=== PATIENT | male | born 1970 | race Caucasian/White ===

== ENCOUNTER 2023-02-28 12:47 | Inpatient (IN) | payer BC, SELFPAY ==
[2023-02-28] VITALS (23 sets, daily range): BP systolic 119–166; BP diastolic 52–86; PULSE 40–60; RESP 16–26; TEMP 36.4–36.6; O2SAT 90–100; BMI 23.5; BMI 33.9; BMI 27.2; BMI 26.6
--- NOTE | 2023-02-28 | IR_ITS ---
APPROVED REPORT Patient Location: Emergent Dog Control Officer: GABRIELLE Lopez RT (R) PROCEDURES Selective coronary angiogram Mechanical thrombectomy to the dominant circumflex artery Drug-eluting stent deployment to the dominant circumflex artery INDICATION Acute inferior lateral ST elevation myocardial infarction, Coronary artery disease Informed consent was obtained prior to the procedure. COMPLICATIONS None Estimated Blood Loss: Less than 10 ML TECHNIQUE One percent lidocaine used to anesthetize the right anterior aspect of the wrist. The right radial artery was accessed via the Seldinger technique. A 6 Maori sheath was placed in the right radial artery. The papa catheter was also used to perform selective coronary angiography. Therapeutic heparin was administered giving a therapeutic ACT and the Poppa guide catheter was used to perform right coronary artery which demonstrated a chronic occlusion. The guide catheter was then placed in the left main artery where an acute thrombosis was identified in the proximal dominant circumflex artery. A Choice PT extra-support wire was used to traverse the occlusion and a penumbra mechanical aspiration catheter was used to restore ALEXX-3 flow. Immediately after the thrombus removal and jew of ALEXX-3 flow patient experienced polymorphic VT which was corrected to sinus rhythm with 1 shock of 120 J. Following this a 3.5 x 26 mm [place] frontier stent was deployed at 18 arnie reducing the stenosis to 0%. ALEXX 0 flow was present at the beginning of the procedure with ALEXX-3 flow at the end of the procedure. Following this the apparatus was removed the sheath was removed and hemostasis was achieved using TR banding patient was transferred to the postop holding in stable condition ANGIOGRAPHIC RESULTS The left main artery Normal The left anterior descending artery Has proximal and mid vessel 30% stenoses The circumflex artery Is a massively large dominant vessel and initially occluded after a large ramus intermedius. Following stenting the ramus intermedius had diffuse 30% stenoses the first obtuse marginal artery had a proximal 50 to 60% stenosis with a widely patent stent. 3 additional obtuse marginal arteries were present distally all being large vessels. The terminal obtuse marginal artery had a long tubular 60% stenosis The right coronary artery Nondominant proximally occluded The DEMARCO ventriculogram reveals Not performed The left ventricular end-diastolic pressure Not measured IMPRESSION Acute proximal dominant inferior lateral RV ST elevation myocardial infarction Successful mechanical thrombectomy followed by drug-eluting stent deployment to the proximal circumflex artery 100% occlusion reduced to 0% with 1 drug-eluting stent PLAN 1. Brilinta 90 twice daily plus aspirin 81 mg daily 2. LDL less than 55 to be achieved with high intensity statin 3. Supportive care for the next 48 hours while maintaining telemetry. 4. Echocardiogram to evaluate ejection fraction and use LifeVest if indicated 5. Beta-blockers and EDWIN inhibitors prior to being discharged home if hemodynamically tolerates 6. Avoidance of tobacco products 7. Cardiac rehabilitation Electronically signed by : Moe Kimble MD 02/28/2023 13:37:24
--- NOTE | 2023-02-28 12:47 | ECG_ITS ---
APPROVED REPORT Exam: Resting ECG HR:56 bpm ECG Measurements Heart Rate 56 AXES QRSd 90 QRS 72 QT 415 T 88 QTc 406 Conclusion SUPRAVENTRICULAR BRADYCARDIA ST ELEVATION, CONSIDER INFERIOR INJURY [MARKED ST ELEVATION W/O NORMALLY INFLECTED T-WAVE IN II/aVF] ACUTE OH UNCONFIRMED REPORT Electronically signed by : rTavis Forrest MD 03/01/2023 07:13:57
--- NOTE | 2023-02-28 12:51 | ED_ITS ---
Discharge Plan Disposition Chief Complaint: Chest Pain Clinical Impressions Clinical Impression: ST elevation (STEMI) myocardial infarction Discharge ED Provider: Tess Burns General Adult HPI General Stated complaint: chest pain Time Seen by Provider: 02/28/23 12:52 History of Present Illness HPI narrative: Patient is a 52-year-old male no known past medical history who presents today with substernal chest discomfort radiating into his left arm with some arm numbness and dizziness that began 10 minutes prior to arrival pain is currently severe. Related Data Home Medications Medication Instructions Recorded Confirmed Unobtainable 02/28/23 02/28/23 Allergies Allergy/AdvReac Type Severity Reaction Status Date / Time Penicillins Allergy Intermediate Verified 02/28/23 12:52 [facility] Disclaimer: The information contained in this section may have been updated after the patient was seen, as this information can be updated by other users. Social History Smoking Status: Unknown if ever smoked alcohol intake: never current occupational status: other Travel in the last 8 weeks: None ROS Obtained: Yes All systems reviewed & no additional complaints except as documented Physical Exam General General appearance: other (In extreme discomfort and distress clutching his chest) Respiratory Respiratory exam: Present normal lung sounds bilaterally and respiratory distress Cardiovascular Cardiovascular exam: Present regular rate and tachycardia Neurological Exam Neurological exam: Present alert and oriented X3 Medical Decision Making Conor Inquiry Pt receiving controlled substance: No Medical Decision Narrative: EKG performed within minutes of arrival and demonstrated acute ST elevations in the inferior leads with lateral reciprocal changes. Patient was mildly bradycardic Dr. Kimble was on the phone within minutes and was ready and in the [facility] and advised that we take the patient directly to the [facility] Manager. Pads were placed in the patient's chest Dr. Kimble wanted medications administered in the [facility] Manager including aspirin Brilinta and heparin. We did not administer any other medications in the ED Al Kimble with [facility] medicine was also at the bedside and the [facility] Manager team took him to the [facility] Manager within minutes. Patient remained awake interactive and hemodynamically stable upon being transferred Critical Care Time Critical Care Time Critical Care Time: No Attestation: On , the high probability of a clinically significant, sudden or life threatenin g deterioration of the following system(s) required my full and direct attention, intervention and personal management. The time I documented below is in addition to time spent performing reported procedures but includes the following listed in this critical care notation.
[2023-02-28 13:05] LABS: Basophils # 0.1 K/mm3 (0-0.2); Basophils % 0.7 % (0.1-2.0); Eosinophils # 0.2 K/mm3 (0.0-0.4); Eosinophils % 1.8 % (0.1-12.0); Hematocrit 42.3 % (42.0-52.0); Hemoglobin 13.9 g/dL (14.1-18.0); Lymphocytes # 4.6 K/mm3 (0.7-4.5); Lymphocytes % 35.5 % (10-50); Mean Corpuscular HGB Conc 32.7 g/dL (31.8-35.4); Mean Corpuscular Hemoglobin 32.4 pg (27.0-31.2); Mean Corpuscular Volume 99.1 fl (80-94); Mean Platelet Volume 8.7 fl (7.4-10.4); Monocytes # 0.6 K/mm3 (0.1-1.0); Monocytes % 4.3 % (1.7-9.3); Neutrophils # 7.5 K/mm3 (1.8-7.8); Neutrophils % 57.7 % (37.0-80.0); Platelet Count 256 K/mm3 (142-424); Red Blood Count 4.27 M/mm3 (4.60-6.20); Red Cell Distribution Width 13.5 % (11.5-17.5)
[2023-02-28 13:18] LABS: Alanine Aminotransferase 29 U/L (12-78); Albumin Level 4.4 g/dl (3.5-5.0); Albumin/Globulin Ratio 1.3 (1.1-1.8); Alkaline Phosphatase 89 U/L (38-126); Aspartate Amino Transferase 34 U/L (17-59); Bilirubin,Total 0.7 mg/dl (0.2-1.3); Blood Urea Nitrogen 14 mg/dl (9-20); Calcium 9.1 mg/dl (8.4-10.2); Carbon Dioxide 26 mmol/L (22.0-30.0); Creatinine Clearance Estimated 105 mL/min (50-200); Estimated Glomerular Filt Rate 78 ml/min (>60); GFR (African American) 95 ML/MIN (>60); Globulin 3.4 g/dL (1.3-3.2); Glucose 87 mg/dl (74-100); Potassium 3.3 mmoL/L (3.5-5.1); Sodium 144 mmol/L (136-145); Total Protein,Serum 7.8 g/dl (6.3-8.2)
[2023-02-28 13:33] LABS: Troponin I < 0.01 ng/ml (0.00-0.034)
[2023-02-28 13:38] LABS: Anion Gap 15.3 mEq/L (5-15); Chloride 106 mmol/L (98-107)
--- NOTE | 2023-02-28 14:01 | PC.NURSE ---
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
--- NOTE | 2023-02-28 14:18 | EXP.CARD.CON ---
History of Present Illness History of Present Illness Consult date: 02/28/23 Requesting physician: Tess Burns Consult reason: chest pain Chief complaint: chest pain History of present illness: This is a 52-year-old white gentleman who presented to the emergency department with complaints of chest pain. The patient was having substernal chest pressure that radiated to his bilateral arms. The patient states that he was out [place] his [place] that he recently bought getting ready to work when he had sudden onset of dizziness and lightheadedness. The patient states that he felt very weird and his vision got really funny. He states then he had the sudden onset of the chest pressure that he rates a 10 out of 10 in intensity. It radiated to the bilateral arms and causes numbness. He was short of breath, diaphoretic, clammy and nauseated with the chest pain. He states that this lasted about 10 minutes and then he drove himself here to [facility]. The patient was found to have an inferior STEMI and was taken directly to the cardiac catheterization laboratory. He denies any lower extremity edema. He denies any fever, chills, vomiting, diarrhea, PND or orthopnea. The patient is a 1 pack/day smoker. He denies any medical problems and does not take any home medications. [facility] Disclaimer: The information contained in this section may have been updated after the patient was seen, as this information can be updated by other users. Medical History Family history of heart disease ST elevation myocardial infarction (STEMI) of inferior wall Tobacco user Family History (Updated 02/28/23 @ 14:20 by Christianne Peng APRN) Other Coronary artery disease Heart attack Hyperlipidemia Hypertension Social History (Updated 02/28/23 @ 14:21 by Christianne Peng APRN) Smoking Status: Current every day smoker tobacco type: cigarettes packs per day: 1 alcohol intake: never substance use type: marijuana counseling provided: provider counseling current occupational status: other Travel in the last 8 weeks: None Review of Systems Review of Systems Review of systems:: pertinent systems reviewed and negative unless documented below Constitutional Constitutional: Reports system reviewed and no additional complaints, except as documented Eyes Eyes: Reports system reviewed and no additional complaints, except as documented ENT Ears, Nose, Mouth, and Throat: Reports system reviewed and no additional complaints, except as documented and Reports dizziness *Cardiovascular Cardiovascular: Reports system reviewed and no additional complaints, except as documented, Reports chest pain, Reports chest pain at rest, Reports chest pain with activity, Reports diaphoresis, Reports dyspnea, Reports dyspnea on exertion, Reports lightheadedness and Reports radiating jaw, neck or arm pain *Respiratory Respiratory: Reports system reviewed and no additional complaints, except as documented, Reports dyspnea and Reports dyspnea on exertion *Gastrointestinal Gastrointestinal: Reports system reviewed and no additional complaints, except as documented and Reports nausea *Genitourinary Genitourinary: Reports system reviewed and no additional complaints, except as documented *Musculoskeletal Musculoskeletal: Reports system reviewed and no additional complaints, except as documented Integumentary/Breasts Skin/Breast: Reports system reviewed and no additional complaints, except as documented *Neurologic Neurologic: Reports system reviewed and no additional complaints, except as documented and Reports dizziness Psychiatric Psychiatric: Reports system reviewed and no additional complaints, except as documented Endocrine Endocrine: Reports system reviewed and no additional complaints, except as documented Hematologic/Lymphatic Hematologic/Lymphatic: Reports system reviewed and no additional complaints, except as documented Allergic/Immunologic Allergic/Immunologic: Repor
--- NOTE | 2023-02-28 14:22 | EXP.HP ---
History of Present Illness *Admission Date: 02/28/23 *Reason for visit:: Stemi *History of present illness: 52 yo admitted with inferior STEMI. Patient initially presented to the emergency department with chest pain found to have inferior ST elevation [place]. Patient was taken emergently to [facility] where he received mid circumflex PCI. Admitted to stepdown following procedure. Patient is currently asymptomatic and feels much better. No chest pain. States that he has been having off-and-on palpitation and angina for the last year. Also having decreased exercise capacity and states that he said shortness of breath, chest pain, palpitations for the past year. He has sought evaluation in the past but told he had a heart burn. He smokes. Denies alcohol or drugs. No concerns or complaints at this time. [facility] Disclaimer: The information contained in this section may have been updated after the patient was seen, as this information can be updated by other users. Medical History Family history of heart disease ST elevation myocardial infarction (STEMI) of inferior wall Tobacco user Family History Other Afib Cancer Coronary artery disease Diabetes Heart attack Hyperlipidemia Hypertension Social History Smoking Status: Current every day smoker tobacco type: cigarettes packs per day: 1 Tobacco counseling given: provider counseling alcohol intake: never substance use type: marijuana counseling provided: provider counseling current occupational status: employed and other Travel in the last 8 weeks: None Review of Systems Review of Systems Review of systems:: pertinent systems reviewed and negative unless documented below *Cardiovascular Cardiovascular: Reports chest pain, Reports dyspnea and Reports irregular heart rhythm *Respiratory Respiratory: Reports dyspnea Meds Home Medications and Allergies Home Medications Medication Instructions Recorded Confirmed Type No Known Home Medications 02/28/23 02/28/23 History New Prescriptions to Start Prescriptions: Allergies Allergy/AdvReac Type Severity Reaction Status Date / Time Penicillins Allergy Intermediate Verified 02/28/23 12:52 Exam Data for Last 24 hours Vital signs and Labs for Last 24 Hours: Temp Pulse Resp BP Pulse Ox 97.7 F 45 L 18 145/71 H 95 02/28/23 12:57 02/28/23 14:10 02/28/23 14:10 02/28/23 14:10 02/28/23 14:10 Laboratory Results - last 24 hr 02/28/23 12:50: WBC 13.0 H, RBC 4.27 L, Hgb 13.9 L, Hct 42.3, MCV 99.1 H, MCH 32.4 H, MCHC 32.7, RDW 13.5, Plt Count 256, MPV 8.7, Neut % (Auto) 57.7, Lymph % (Auto) 35.5, Starke % (Auto) 4.3, Eos % (Auto) 1.8, Baso % (Auto) 0.7, Neut # (Auto) 7.5, Lymph # (Auto) 4.6 H, Starke # (Auto) 0.6, Eos # (Auto) 0.2, Baso # (Auto) 0.1 02/28/23 12:50: Sodium 144, Potassium 3.3 L, Chloride 106, Carbon Dioxide 26, Anion Gap 15.3 H, BUN 14, Creatinine 1.00, Estimated Creat Clear 105, Estimated GFR 78, Est GFR ( Amer) 95, Glucose 87, Calcium 9.1, Total Bilirubin 0.7, AST 34, ALT 29, Alkaline Phosphatase 89, Troponin I < 0.01, Total Protein 7.8, Albumin 4.4, Globulin 3.4 H, Albumin/Globulin Ratio 1.3 I & O for Last 24 hours: Intake & Output 02/25/23 02/26/23 02/27/23 02/28/23 23:59 23:59 23:59 23:59 Weight 86.183 kg Constitutional Constitutional: no acute distress *Routine HEENT Exam Head: Present normocephalic Eye: Present EOMI and PERRL ENT: Present mucous membranes moist *Routine Neck Exam Neck: Present supple; Absent lymphadenopathy *Routine Respiratory Exam Respiratory: Present CTA bilaterally *Routine Cardiovascular Exam Cardiovascular: Present RRR *Routine Abdominal Exam Abdominal: Present soft and normoactive bowel sounds; Absent tenderness *Routine Rectal Exam Rectal:: deferred *Routine Genitalia Exam Genitalia:: deferred *Routine
[2023-02-28 15:52] LABS: CATHL Activated Clotting Time 237 SEC (74-125)
[2023-02-28 17:07] LABS: Coronavirus 19, PCR Not Detected (NotDetected); Influenza A, PCR Not Detected (NotDetected); Influenza B, PCR Not Detected (NotDetected)
[2023-02-28 17:32] LABS: Troponin I 0.42 ng/ml (0.00-0.034)
--- NOTE | 2023-02-28 17:41 | PC.NURSE ---
critical lab value received at 1731. troponin 0.42. name and lab value repeated and verified back called Dr Earl at 1732 and notified of results. per dr earl ok to cancel any further troponins ordered.
--- NOTE | 2023-02-28 18:13 | PC.NURSE ---
1409 arrived on unit 20 ml of air in radial band 1535 2ml air removed 1550 2ml air removed 1605 2 ml air removed 1635 2 ml air removed 1700 2 ml air removed 1715 2 ml air removed 1730 2 ml air removed 1745 site cleaned with chlorhexidine swab and dressed with telfa and tegaderm
[2023-03-01] VITALS (11 sets, daily range): BP systolic 119–169; BP diastolic 63–107; PULSE 41–70; RESP 16–21; TEMP 36.6–36.9; O2SAT 95–100; BMI 26.6
[2023-03-01 07:28] LABS: Basophils # 0.1 K/mm3 (0-0.2); Basophils % 0.4 % (0.1-2.0); Eosinophils # 0.2 K/mm3 (0.0-0.4); Eosinophils % 1.7 % (0.1-12.0); Hematocrit 42.1 % (42.0-52.0); Hemoglobin 13.6 g/dL (14.1-18.0); Lymphocytes # 3.2 K/mm3 (0.7-4.5); Lymphocytes % 22.8 % (10-50); Mean Corpuscular HGB Conc 32.2 g/dL (31.8-35.4); Mean Corpuscular Hemoglobin 31.9 pg (27.0-31.2); Mean Corpuscular Volume 98.9 fl (80-94); Mean Platelet Volume 8.8 fl (7.4-10.4); Monocytes # 0.6 K/mm3 (0.1-1.0); Monocytes % 4.2 % (1.7-9.3); Neutrophils # 9.9 K/mm3 (1.8-7.8); Neutrophils % 70.9 % (37.0-80.0); Platelet Count 199 K/mm3 (142-424); Red Blood Count 4.26 M/mm3 (4.60-6.20); Red Cell Distribution Width 13.5 % (11.5-17.5)
[2023-03-01 07:36] LABS: Alanine Aminotransferase 29 U/L (12-78); Albumin Level 3.7 g/dl (3.5-5.0); Alkaline Phosphatase 79 U/L (38-126); Aspartate Amino Transferase 81 U/L (17-59); Bilirubin,Indirect 0.9 mg/dL (0.0-0.9); Bilirubin,Total 0.9 mg/dl (0.2-1.3); Chol/HDL Ratio 6.5 (1-3.5); Cholesterol 200 mg/dl (140-200); HDL Cholesterol 31 mg/dl (40-60); Total Protein,Serum 6.5 g/dl (6.3-8.2); Triglycerides 108 mg/dl (30-150); VLDL Cholesterol 22 mg/dL (0-40)
[2023-03-01 07:38] LABS: Anion Gap 11.7 mEq/L (5-15); Blood Urea Nitrogen 13 mg/dl (9-20); Calcium 8.3 mg/dl (8.4-10.2); Carbon Dioxide 25 mmol/L (22.0-30.0); Chloride 106 mmol/L (98-107); Creatinine Clearance Estimated 115 mL/min (50-200); Estimated Glomerular Filt Rate 89 ml/min (>60); GFR (African American) 107 ML/MIN (>60); Glucose 124 mg/dl (74-100); Potassium 3.7 mmoL/L (3.5-5.1); Sodium 139 mmol/L (136-145)
--- NOTE | 2023-03-01 11:45 | EXP.ACUTE.PN ---
Subjective *Date: 03/01/23 *Time: 11:45 Interval history: still having mild chest pressure, improved, no concerns. answered questions Medical Exam Vital signs and Labs for Last 24 Hours: Vital Signs Temp Pulse Pulse Resp BP BP Pulse Ox 03/01/23 11:33 98.5 F 53 L 21 152/74 H 95 03/01/23 08:00 45 L 18 137/75 97 03/01/23 06:00 43 L 18 141/67 H 97 03/01/23 04:00 41 L 03/01/23 04:00 41 L 97 03/01/23 04:00 98.4 F 42 L 16 121/63 97 03/01/23 02:00 47 L 18 133/72 96 03/01/23 00:00 41 L 02/28/23 20:00 47 L 03/01/23 00:31 41 L 03/01/23 00:00 97.9 F 41 L 18 119/64 96 02/28/23 22:02 53 L 18 133/52 L 98 02/28/23 20:40 47 L 18 122/63 100 02/28/23 19:40 98 F 51 L 16 157/78 H 100 02/28/23 21:07 47 L 02/28/23 20:00 98 F 51 L 18 157/78 H 100 02/28/23 20:00 47 L 100 02/28/23 18:43 47 L 18 147/74 H 98 02/28/23 18:00 51 L 18 132/85 99 02/28/23 16:40 48 L 18 130/74 99 02/28/23 16:10 97.6 F 55 L 18 132/68 97 02/28/23 15:40 47 L 18 132/71 97 02/28/23 15:10 46 L 18 142/80 H 98 02/28/23 16:00 40 L 02/28/23 14:09 50 L 02/28/23 14:10 44 L 99 02/28/23 14:40 53 L 16 166/85 H 100 02/28/23 14:25 53 L 20 147/86 H 99 02/28/23 14:10 45 L 18 145/71 H 95 02/28/23 13:35 51 L 20 119/72 90 L 02/28/23 13:56 42 L 26 H 145/73 H 99 02/28/23 13:30 51 L 20 125/72 90 L 02/28/23 13:26 45 L 60 20 121/74 97 02/28/23 12:57 97.7 F 59 L 19 124/78 02/28/23 12:52 59 L 02/28/23 12:48 97.7 F 56 L 20 124/83 96 Intake and Output 02/28/23 03/01/23 03/01/23 23:59 07:59 15:59 Intake Total 240 / 240 480 / 480 Output Total 0 / 0 0 / 0 Balance 240 / 240 480 / 480 Intake: Intake, Oral Amount 240 / 240 480 / 480 Output: Output, Urine Amount 0 / 0 0 / 0 Other: Number of Unmeasured Voids 1 1 Weight 84.5 kg Patient Weight 03/01/23 23:59 Weight 84.5 kg Laboratory Results - last 24 hr 02/28/23 12:50: WBC 13.0 H, RBC 4.27 L, Hgb 13.9 L, Hct 42.3, MCV 99.1 H, MCH 32.4 H, MCHC 32.7, RDW 13.5, Plt Count 256, MPV 8.7, Neut % (Auto) 57.7, Lymph % (Auto) 35.5, [place] % (Auto) 4.3, Eos % (Auto) 1.8, Baso % (Auto) 0.7, Neut # (Auto) 7.5, Lymph # (Auto) 4.6 H, [place] # (Auto) 0.6, Eos # (Auto) 0.2, Baso # (Auto) 0.1 02/28/23 12:50: Sodium 144, Potassium 3.3 L, Chloride 106, Carbon Dioxide 26, Anion Gap 15.3 H, BUN 14, Creatinine 1.00, Estimated Creat Clear 105, Estimated GFR 78, Est GFR ( Amer) 95, Glucose 87, Calcium 9.1, Total Bilirubin 0.7, AST 34, ALT 29, Alkaline Phosphatase 89, Troponin I < 0.01, Total Protein 7.8, Albumin 4.4, Globulin 3.4 H, Albumin/Globulin Ratio 1.3 02/28/23 12:58: Activated Clotting Time 237 H* 02/28/23 16:40: SARS-CoV-2 (PCR) Not detected, Influenza A Untype (PCR) Not detected, Influenza Type B (PCR) Not detected 02/28/23 16:45: Troponin I 0.42 H 03/01/23 06:50: WBC 14.0 H, RBC 4.26 L, Hgb 13.6 L, Hct 42.1, MCV 98.9 H, MCH 31.9 H, MCHC 32.2, RDW 13.5, Plt Count 199, MPV 8.8, Neut % (Auto) 70.9, Lymph % (Auto) 22.8, [place] % (Auto) 4.2, Eos % (Auto) 1.7, Baso % (Auto) 0.4, Neut # (Auto) 9.9 H, Lymph # (Auto) 3.2, [place] # (Auto) 0.6, Eos # (Auto) 0.2, Baso # (Auto) 0.1 03/01/23 06:50: Total Bilirubin 0.9, Direct Bilirubin 0.0, Conjugated Bilirubin 0.0, Indirect Bilirubin 0.9, Unconjugated Bilirubin 1.0, AST 81 H D, ALT 29, Alkaline Phosphatase 79, Total Protein 6.5, Albumin 3.7 D, Triglycerides 108, Cholesterol 200, LDL Cholesterol Direct 137.00 H, VLDL Cholesterol 22, HDL Cholesterol 31 L, Cholesterol/HDL Ratio 6.5 H 03/01/23 06:50: Sodium 139, Potassium 3.7, Chloride 106, Carbon Dioxide 25, Anion Gap 11.7, BUN 13, Creatinine 0.90, Estimated Creat Clear 115, Estimated GFR 89, Est GFR ( Amer) 107, Glucose 124 H D, Calcium 8.3 L I & O for Labs for Last 24 Hours:
--- NOTE | 2023-03-01 15:06 | PC.NURSE ---
PT IS RESTING IN BED WITH FAMILY AT BEDSIDE. PT IS ANXIOUS TO GO HOME. TOLERATED TAKING AN SHOWER THIS SHIFT. EATING AND DRINKING WELL. SINUS BRANDT ON TELEMETRY. LUNG SOUNDS CLEAR. ABDOMEN SOFT/NON TENDER WITH ACTIVE BOWEL SOUNDS. NO SWELLING NOTED TO BLE. 2+ PEDAL/TIBIAL PULSES. DRESSING TO THE RIGHT RADIAL CATH SITE C/D/I. WILL CONTINUE TO MONITOR.
[2023-03-02] VITALS: BP 113/78; PULSE 50; PULSE 70; RESP 18; TEMP 36.9; O2SAT 99
[2023-03-02 04:00] VITALS: BP 126/74; PULSE 50; PULSE 63; RESP 20; TEMP 37.1; O2SAT 96; BMI 26.6
--- NOTE | 2023-03-02 05:04 | PC.NURSE ---
PT HAS RESTED WELL THIS SHIFT. NO C/O PAIN. NO N/V/D. PT DID GET UP AND AMBULATE ONE FULL ANIAK AROUND THE UNIT. VSS. HAS REMAINED NSR TO SINUS BRANDT ON TELE. PT IS EAGER TO GO HOME. CALL [facility]ILL WITHIN REACH. AT BEDSIDE.
--- NOTE | 2023-03-02 07:11 | EXP.DC.SUM ---
General Admission date:: 02/28/23 Discharge date: 03/02/23 HPI HPI HPI: 52 yo admitted with inferior STEMI. Patient initially presented to the emergency department with chest pain found to have inferior ST elevation [place]. Patient was taken emergently to [facility] where he received mid circumflex PCI. Admitted to stepdown following procedure. Patient is currently asymptomatic and feels much better. No chest pain. States that he has been having off-and-on palpitation and angina for the last year. Also having decreased exercise capacity and states that he said shortness of breath, chest pain, palpitations for the past year. He has sought evaluation in the past but told he had a heart burn. He smokes. Denies alcohol or drugs. No concerns or complaints at this time. Exam Data for Last 24 hours Vital signs and Labs for Last 24 Hours: Temp Pulse Resp BP Pulse Ox 98.7 F 63 20 126/74 96 03/02/23 04:00 03/02/23 04:00 03/02/23 04:00 03/02/23 04:00 03/02/23 04:00 Laboratory Results - last 24 hr 03/01/23 06:50: WBC 14.0 H, RBC 4.26 L, Hgb 13.6 L, Hct 42.1, MCV 98.9 H, MCH 31.9 H, MCHC 32.2, RDW 13.5, Plt Count 199, MPV 8.8, Neut % (Auto) 70.9, Lymph % (Auto) 22.8, [place] % (Auto) 4.2, Eos % (Auto) 1.7, Baso % (Auto) 0.4, Neut # (Auto) 9.9 H, Lymph # (Auto) 3.2, [place] # (Auto) 0.6, Eos # (Auto) 0.2, Baso # (Auto) 0.1 03/01/23 06:50: Total Bilirubin 0.9, Direct Bilirubin 0.0, Conjugated Bilirubin 0.0, Indirect Bilirubin 0.9, Unconjugated Bilirubin 1.0, AST 81 H D, ALT 29, Alkaline Phosphatase 79, Total Protein 6.5, Albumin 3.7 D, Triglycerides 108, Cholesterol 200, LDL Cholesterol Direct 137.00 H, VLDL Cholesterol 22, HDL Cholesterol 31 L, Cholesterol/HDL Ratio 6.5 H 03/01/23 06:50: Sodium 139, Potassium 3.7, Chloride 106, Carbon Dioxide 25, Anion Gap 11.7, BUN 13, Creatinine 0.90, Estimated Creat Clear 115, Estimated GFR 89, Est GFR ( Amer) 107, Glucose 124 H D, Calcium 8.3 L I & O for Last 24 hours: Intake & Output 02/27/23 02/28/23 03/01/23 03/02/23 23:59 23:59 23:59 23:59 Intake Total 240 / 240 720 / 720 Output Total 0 / 0 0 / 0 0 / 0 Balance 240 / 240 720 / 720 0 / 0 Weight 84.538 kg 84.5 kg 84.414 kg Narrative: EKG is sinus rhythm with inferior ST elevation and reciprocal changes. Constitutional Constitutional: no acute distress and average body habitus *Routine HEENT Exam Head: Present normocephalic and atraumatic ENT: Present mucous membranes moist *Routine Neck Exam Neck: Present supple, full ROM and normal carotid upstroke; Absent JVD, carotid bruit or lymphadenopathy *Routine Respiratory Exam Respiratory: Present CTA bilaterally, normal respiratory effort, able to speak in complete sentences and symmetric chest movement *Routine Cardiovascular Exam Cardiovascular: Present RRR, Normal S1, Normal S2 and murmur; Absent gallop *Routine Abdominal Exam Abdominal: Present soft and normoactive bowel sounds; Absent tenderness, distended or organomegaly *Routine Extremities Exam Extremities: Present full ROM, pulses intact and normal capillary refill; Absent cyanosis, clubbing or edema *Routine Skin Exam Skin: Present intact and warm; Absent erythema *Routine Neurological Exam Neurological: Present alert, oriented X3 and CN II-XII intact; Absent sensory deficit or motor deficit Routine Psychiatric Exam Psychiatric: Present normal affect Results Data Completed and Pending Labs on day of discharge: Labs from last 24 hours 03/01/23 03/01/23 03/01/23 06:50 06:50 06:50 WBC 14.0 H RBC 4.26 L Hgb 13.6 L Hct 42.1 MCV 98.9 H MCH 31.9 H MCHC 32.2 RDW 13.5 Plt Count 199 MPV 8.8 Neut % (Auto) 70.9 Lymph % (Auto) 22.8 [place] % (Auto) 4.2 Eos % (Auto) 1.7 Baso % (Auto) 0.4 Neut # (Auto) 9.9 H Lymph # (Auto) 3.2 [place] # (Auto) 0.6 Eos # (Auto) 0.2 Baso # (Auto) 0.1 Sodium 139 Potassium 3.7 Chloride 106 Carbon Dioxide 25 Anion
[2023-03-02 08:00] VITALS: BP 127/75; PULSE 52; PULSE 56; RESP 20; TEMP 36.7; O2SAT 98
[2023-03-02 11:36] VITALS: BP 128/81; PULSE 57; RESP 20; TEMP 36.7; O2SAT 98
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
--- NOTE | 2023-03-02 13:53 | PC.NURSE ---
called cardiology office and left message to please call patient with appointment
--- NOTE | 2023-03-02 13:59 | P.CONPHA_ITS ---
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 PATIENT VERBALIZED UNDERSTANDING AND HAD NO QUESTIONS AT THIS TIME. -AIDA VU, PHARMD
--- NOTE | 2023-03-04 13:40 | CARE MANAGER ---
Spoke with patient for post-discharge phone interview.
== END 2023-03-02 14:05 | disposition home or self-care (01) | DRG 247 ==
LOC: ER 12:57 → 2ND 13:24
PROVIDERS: Internal Medicine; Nurse Practitioner Family; Admitting Provider Student in an Organized Health Care Education/Training Program; Emergency Provider Student in an Organized Health Care Education/Training Program; PCP Pediatrics; Visit Provider Student in an Organized Health Care Education/Training Program
PROC: 02C03ZZ Extirpation of Matter from Coronary Artery, One Artery, Percutaneous Approach (ICD-10-PCS; principal; 2023-02-28 12:50)
DX: I21.19 ST elevation (STEMI) myocardial infarction involving other coronary artery of inferior wall (principal); F17.210 Nicotine dependence, cigarettes, uncomplicated; Z82.49 Family history of ischemic heart disease and other diseases of the circulatory system; Z71.6 Tobacco abuse counseling; I25.10 Atherosclerotic heart disease of native coronary artery without angina pectoris; I25.82 Chronic total occlusion of coronary artery
CPT/HCPCS: 36415; 80048; 80053; 80061; 80076; 84484; 85025; 85347; 87636; 92941; 92973; 93005; 93306; 93454; 99152; 99153; 99285; C1725; C1769; C1876; C9606; C9803; J1644; Q9967; U0003; U0005

== ENCOUNTER → 2023-03-10 08:13 | Outpatient (CLI) | payer BC, SELFPAY ==
[2023-03-10 08:39] LABS: Hemoglobin 13.6 g/dL (14.1-18.0)
[2023-03-10 08:50] LABS: Blood Urea Nitrogen 18 mg/dl (9-20); Estimated Glomerular Filt Rate 78 ml/min (>60); GFR (African American) 95 ML/MIN (>60)
== END ==
LOC: LAB 08:14
PROVIDERS: PCP Family Medicine; Visit Provider Internal Medicine
DX: I25.10 Atherosclerotic heart disease of native coronary artery without angina pectoris (principal); Z95.5 Presence of coronary angioplasty implant and graft
CPT/HCPCS: 36415; 82565; 84520; 85014; 85018

== ENCOUNTER → 2023-03-20 12:51 | Outpatient (CLI) | payer BC, SELFPAY ==
--- NOTE | 2023-03-20 13:01 | CA_ITS ---
FINAL REPORT TECHNIQUE: Color Doppler, duplex Doppler and ramos scale sonography of the bilateral neck arterial vasculature was performed. Velocities were measured in the carotid arteries. Stenosis evaluation based on the validated velocity criteria. CLINICAL HISTORY: carotid bruit FINDINGS: The peak systolic velocity of the right common carotid artery is 114 cm/s. The peak systolic velocity of the right internal carotid artery is 109 cm/s and end diastolic velocity 36 cm/s. The ICA/CCA ratio is 1.0. A small amount of plaque is present. The right external carotid artery is patent. The right vertebral artery is patent with antegrade flow. The peak systolic velocity of the left common carotid artery is 108 cm/s. The peak systolic velocity of the left internal carotid artery is 130 cm/s and end diastolic velocity 52 cm/s. The ICA/CCA ratio is 1.4. A small amount of plaque is present. The left external carotid artery is patent.The left vertebral artery is patent with antegrade flow. IMPRESSION: Less than 50% bilateral carotid stenoses. Bilateral patent vertebral arteries with antegrade flow. If indicated, CTA or MRA could further evaluate. Reviewed, Interpreted and Dictated by Gilberto Yu III, MD Transcribed by Nury Garrett Authenticated and [facility]
--- NOTE | 2023-03-20 13:01 | US_ITS ---
FINAL REPORT CLINICAL HISTORY: CLAUDICATION,CAD,HTN,HLD,EX SMOKER COMPARISON: None FINDINGS: ANKLE-BRACHIAL PRESSURE INDICES Pressure indices are as follows: RIGHT LOWER EXTREMITY: Ankle-brachial pressure index: 1.06 Comments: Normal LEFT LOWER EXTREMITY: Ankle-brachial pressure index: 0.97 Comments: Normal IMPRESSION: No evidence of significant obstructive peripheral vascular disease of the lower extremities Reviewed, Interpreted and Dictated by Gilberto Yu III, MD Transcribed by Gayla Ayers Authenticated and [facility]
== END ==
PROVIDERS: PCP Family Medicine; Visit Provider Nurse Practitioner
DX: R09.89 Other specified symptoms and signs involving the circulatory and respiratory systems (principal); I25.10 Atherosclerotic heart disease of native coronary artery without angina pectoris; I10 Essential (primary) hypertension; E78.5 Hyperlipidemia, unspecified; I73.9 Peripheral vascular disease, unspecified; Z72.0 Tobacco use
CPT/HCPCS: 93880; 93923

== ENCOUNTER → 2023-05-12 16:07 | Outpatient (CLI) | payer BC, SELFPAY ==
--- NOTE | 2023-05-12 16:08 | CA_ITS ---
FINAL REPORT TECHNIQUE: Color Doppler, duplex Doppler and compression sonography of the right lower extremity venous system was performed. CLINICAL HISTORY: edema of RLE,PT ON BRILINITA FINDINGS: There is no evidence of deep venous thrombosis from the level of the groin to the calf. The veins are patent and compressible. IMPRESSION: No evidence of deep venous thrombosis right lower extremity. Reviewed, Interpreted and Dictated by Gilberto Yu III, MD Transcribed by Nury Garertt Authenticated and [facility] [place] [place]
[2023-05-12 17:17] LABS: Alanine Aminotransferase 41 U/L (12-78); Albumin Level 4.5 g/dl (3.5-5.0); Alkaline Phosphatase 98 U/L (38-126); Aspartate Amino Transferase 33 U/L (17-59); Bilirubin,Indirect 1.1 mg/dL (0.0-0.9); Bilirubin,Total 1.1 mg/dl (0.2-1.3); Bilirubin,Unconjugated 1.2 mg/dL (0.0-1.1); Chol/HDL Ratio 3.6 (1-3.5); Cholesterol 135 mg/dl (140-200); HDL Cholesterol 37 mg/dl (40-60); Total Protein,Serum 7.7 g/dl (6.3-8.2); Triglycerides 131 mg/dl (30-150); VLDL Cholesterol 26 mg/dL (0-40)
[2023-05-12 17:28] LABS: Direct LDL Cholesterol 71.38 mg/dL (100-129)
== END ==
PROVIDERS: PCP Family Medicine; Visit Provider Internal Medicine
DX: I25.10 Atherosclerotic heart disease of native coronary artery without angina pectoris (principal); E78.5 Hyperlipidemia, unspecified; R00.1 Bradycardia, unspecified; R60.0 Localized edema; Z72.0 Tobacco use; I11.9 Hypertensive heart disease without heart failure
CPT/HCPCS: 36415; 80061; 80076; 93971

== ENCOUNTER → 2023-07-30 15:07 | Outpatient (CLI) | payer BC, SELFPAY ==
[2023-07-30 15:22] LABS: Basophils # 0.1 K/mm3 (0-0.2); Basophils % 0.6 % (0.1-2.0); Eosinophils # 0.2 K/mm3 (0.0-0.4); Eosinophils % 2.3 % (0.1-12.0); Hematocrit 38.3 % (42.0-52.0); Hemoglobin 13.3 g/dL (14.1-18.0); Lymphocytes # 2.3 K/mm3 (0.7-4.5); Lymphocytes % 25.7 % (10-50); Mean Corpuscular HGB Conc 34.7 g/dL (31.8-35.4); Mean Corpuscular Hemoglobin 33.2 pg (27.0-31.2); Mean Corpuscular Volume 95.7 fl (80-94); Monocytes # 0.6 K/mm3 (0.1-1.0); Monocytes % 6.5 % (1.7-9.3); Neutrophils # 5.9 K/mm3 (1.8-7.8); Neutrophils % 64.9 % (37.0-80.0); Platelet Count 297 K/mm3 (142-424); Red Blood Count 4.01 M/mm3 (4.60-6.20); Red Cell Distribution Width 13.2 % (11.5-17.5); White Blood Count 9.1 K/mm3 (4.8-10.8)
[2023-07-30 16:22] LABS: Alanine Aminotransferase 42 U/L (12-78); Albumin Level 4.4 g/dl (3.5-5.0); Alkaline Phosphatase 88 U/L (38-126); Aspartate Amino Transferase 33 U/L (17-59); Bilirubin,Direct 0.2 mg/dl (0.0-0.4); Bilirubin,Indirect 0.3 mg/dL (0.0-0.9); Bilirubin,Total 0.5 mg/dl (0.2-1.3); Bilirubin,Unconjugated 0.3 mg/dL (0.0-1.1); Blood Urea Nitrogen 9 mg/dl (9-20); Calcium 9.3 mg/dl (8.4-10.2); Carbon Dioxide 26 mmol/L (22.0-30.0); Chloride 104 mmol/L (98-107); Estimated Glomerular Filt Rate 89 ml/min (>60); GFR (African American) 107 ML/MIN (>60); Glucose 89 mg/dl (74-100); Sodium 141 mmol/L (136-145); Total Protein,Serum 7.5 g/dl (6.3-8.2)
[2023-07-30 16:34] LABS: Troponin I 0.01 ng/ml (0.00-0.034)
[2023-07-30 16:38] LABS: Free T4 (Free Thyroxine) 0.99 ng/dl (0.78-2.19)
[2023-07-30 16:53] LABS: Thyroid Stimulating Hormone 4.18 uIU/mL (0.465-4.68)
== END ==
PROVIDERS: PCP Family Medicine; Visit Provider Nurse Practitioner Family
DX: I25.10 Atherosclerotic heart disease of native coronary artery without angina pectoris (principal); I10 Essential (primary) hypertension; R00.2 Palpitations; E78.5 Hyperlipidemia, unspecified; Z72.0 Tobacco use
CPT/HCPCS: 36415; 80048; 80076; 84439; 84443; 84484; 85025; 93270

== ENCOUNTER 2024-06-20 20:34 | Observation (INO) | payer BC, SELFPAY ==
[2024-06-20 20:34] VITALS: BP 143/111; PULSE 177; RESP 14; TEMP 36.6; O2SAT 98; BMI 23.7
--- NOTE | 2024-06-20 20:45 | PC.NURSE ---
Dr. Seo at bedside for pt eval
[2024-06-20 20:49] VITALS: PULSE 177
--- NOTE | 2024-06-20 20:49 | XR_ITS ---
PROCEDURE INFORMATION: Exam: XR Chest Exam date and time: 06/20/2024 8:55 PM Age: 53 years old Clinical indication: Pain; Chest pressure; Additional info: Afib rvr TECHNIQUE: Imaging protocol: Radiologic exam of the chest. Views: 1 view. COMPARISON: No relevant prior studies available. FINDINGS: Lungs: Unremarkable. No consolidation. Pleural spaces: Unremarkable. No pleural effusion. No pneumothorax. Heart/Mediastinum: Unremarkable. No cardiomegaly. Bones/joints: Unremarkable. IMPRESSION: No acute findings.
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
[2024-06-20] MEDS: dilTIAZem 25MG/5ML VIAL 20 MG IV (21:00)
[2024-06-20 21:01] VITALS: BP 133/106; PULSE 83; RESP 18; O2SAT 100
[2024-06-20] MEDS: dilTIAZem HCL 100 MG in 0.9 % SODIUM CHLORIDE 100 ML IV (21:01)
[2024-06-20 21:02] LABS: Basophils # 0.1 K/mm3 (0-0.2); Eosinophils # 0.2 K/mm3 (0.0-0.4); Eosinophils % 1.6 % (0.1-12.0); Hematocrit 47.5 % (42.0-52.0); Hemoglobin 14.6 g/dL (14.1-18.0); Lymphocytes # 3.2 K/mm3 (0.7-4.5); Lymphocytes % 31.4 % (10-50); Mean Corpuscular HGB Conc 30.8 g/dL (31.8-35.4); Mean Corpuscular Hemoglobin 31.1 pg (27.0-31.2); Mean Platelet Volume 8.4 fl (7.4-10.4); Monocytes # 0.5 K/mm3 (0.1-1.0); Monocytes % 4.7 % (1.7-9.3); Neutrophils # 6.3 K/mm3 (1.8-7.8); Neutrophils % 61.4 % (37.0-80.0); Platelet Count 250 K/mm3 (142-424); Red Cell Distribution Width 14.2 % (11.5-17.5); White Blood Count 10.3 K/mm3 (4.8-10.8)
[2024-06-20 21:03] LABS: Albumin Level 5.1 g/dl (3.5-5.0); Chloride 104 mmol/L (98-107); Sodium 139 mmol/L (136-145)
[2024-06-20 21:04] LABS: Potassium 3.2 mmoL/L (3.5-5.1)
[2024-06-20 21:06] LABS: Alanine Aminotransferase 31 U/L (12-78); Anion Gap 13.2 mEq/L (5-15); Aspartate Amino Transferase 36 U/L (17-59); Blood Urea Nitrogen 17 mg/dl (9-20); Carbon Dioxide 25 mmol/L (22.0-30.0); Creatinine Clearance Estimated 85 mL/min (50-200); Estimated Glomerular Filt Rate 70 ml/min (>60); GFR (African American) 85 ML/MIN (>60)
[2024-06-20 21:07] LABS: Albumin/Globulin Ratio 1.3 (1.1-1.8); Alkaline Phosphatase 80 U/L (38-126); Bilirubin,Total 1.1 mg/dl (0.2-1.3); Calcium 9.9 mg/dl (8.4-10.2); Globulin 3.8 g/dL (1.3-3.2); Glucose 132 mg/dl (74-100); Magnesium 1.8 mg/dl (1.6-2.3); Total Protein,Serum 8.9 g/dl (6.3-8.2)
[2024-06-20 21:20] LABS: Troponin I < 0.01 ng/ml (0.00-0.034)
[2024-06-20 21:24] LABS: Free T4 (Free Thyroxine) 1.19 ng/dl (0.78-2.19)
[2024-06-20 21:38] LABS: Thyroid Stimulating Hormone 4.66 uIU/mL (0.465-4.68)
[2024-06-20] MEDS: POTASSIUM CHLORIDE 20MEQ TAB 40 MEQ PO (21:47)
--- NOTE | 2024-06-20 22:24 | PC.NURSE ---
Report called to DHRUV Stafford
[2024-06-20 22:25] VITALS: BP 149/71; PULSE 57; RESP 20; TEMP 36.6; O2SAT 98
--- NOTE | 2024-06-20 22:34 | P.HP_ITS ---
History of Present Illness *Admission Date: 06/20/24 *Reason for visit:: Sudden onset atrial fibs with RVR rate above 140, and SVT *History of present illness: 43-year-old male who has stopped smoking a year ago, got into a heated argument with a neighbor.. He had a sudden onset of rapid heart rate, that would not slow. He came to the emergency room and was found to be in atrial fibs with RVR rate 1 45-1 70. With episodes of SVT. Patient had an [place] with stenting approximately a year and a half ago.. He has remained up on his aspirin taking high hypercholesterol medication, but did stop his Brilinta. Patient also quit smoking after his last heart attack. On arrival to the emergency room diltiazem was given with a diltiazem drip started. His rate declined and he converted back to sinus rhythm. Heart rate on Cardizem drip 50-55. Also noting potassium slightly low, will replace orally Do agree with the ER physician need to be brought in and monitored and be reevaluated by cardiology in the a.m. Interviewed patient and his family the send room, was noted that both sides of the family have significant heart disease with a lot of the members of the patient's family dying before age 60 with cardiovascular issues [facility] Disclaimer: The information contained in this section may have been updated after the patient was seen, as this information can be updated by other users. Medical History (Updated 06/21/24 @ 13:40 by Christianne Peng APRN) Atrial fibrillation with RVR Sinus bradycardia Palpitations Carotid bruit Claudication HLD (hyperlipidemia) HTN (hypertension) Coronary artery disease Family history of heart disease Tobacco user ST elevation myocardial infarction (STEMI) of inferior wall Family History Other Afib Cancer Coronary artery disease Diabetes Heart attack Hyperlipidemia Hypertension Social History Smoking Status: Current every day smoker tobacco type: cigarettes packs per day: 1 alcohol intake: never substance use type: marijuana counseling provided: provider counseling current occupational status: employed and other Travel in the last 8 weeks: None Review of Systems Review of Systems Review of systems:: pertinent systems reviewed and negative unless documented below Constitutional Constitutional: Reports as per HPI Comments: Patient reports he is feeling fine at this point in time, back to his baseline before the event Eyes Eyes: Reports system reviewed and no additional complaints, except as documented ENT Ears, Nose, Mouth, and Throat: Reports system reviewed and no additional complaints, except as documented *Cardiovascular Cardiovascular: Reports as per HPI Comments: Patient denies chest pain or shortness of breath, on monitor in sinus rhythm mid 50s *Respiratory Respiratory: Reports system reviewed and no additional complaints, except as documented *Gastrointestinal Gastrointestinal: Reports system reviewed and no additional complaints, except as documented *Genitourinary Genitourinary: Reports system reviewed and no additional complaints, except as documented *Musculoskeletal Musculoskeletal: Reports system reviewed and no additional complaints, except as documented Integumentary/Breasts Skin/Breast: Reports system reviewed and no additional complaints, except as documented *Neurologic Neurologic: Reports system reviewed and no additional complaints, except as documented Psychiatric Psychiatric: Reports system reviewed and no additional complaints, except as documented Endocrine Endocrine: Reports system reviewed and no additional complaints, except as documented Hematologic/Lymphatic Hematologic/Lymphatic: Reports system reviewed and no additional complaints, except as documented Allergic/Immunologic Allergic/Immunologic: Reports system reviewed and no additional complaints, except as documented Meds Home Medications and Allergies Home Medications ?Medication ?Instructions ?Recorded ?Confirmed ?Type aspirin 81 mg tablet,delayed 81 mg PO DAILY #90 tabs 03/10/23 06/20/24 Rx release nitroglycerin 0.4 mg sublingual 0.4 mg sublingual Q5MINP PRN Chest 05/12/23 06/20/24 Rx tablet (Nitrostat) Pain #20 tabs atorvastatin 80 mg tablet 80 mg PO HS #90 tabs 03/22/24 06/20/24 Rx amiodarone 200 mg tablet 200 mg PO BID 30 days #60 tabs 06/21/24 Rx apixaban 5 mg tablet (Eliquis) 5 mg PO BID 30 days #60 tabs 06/21/24 Rx lisinopril 20 mg tablet 20 mg PO DAILY 06/21/24 06/21/24 History New Prescriptions to Start Prescriptions: amiodarone Khoa Benson apixaban [Eliquis] Khoa Benson Allergies Allergy/AdvReac Type Severity Reaction Status Date / Time Penicillins Allergy Intermediate Verified 08/12/23 15:01 carvedilol [From Coreg] AdvReac bradycardia Verified 08/12/23 15:01 metoprolol AdvReac bradycardia Verified 08/12/23 15:01 Exam Data for Last 24 hours Vital signs and Labs for Last 24 Hours: Temp Pulse Resp BP Pulse Ox O2 Del Method 97.9 F 57 L 20 149/71 H 100 Room Air 06/20/24 22:25 06/20/24 22:25 06/20/24 22:25 06/20/24 22:25 06/20/24 21:01 06/20/24 22:25 Laboratory Results - last 24 hr 06/20/24 20:37: WBC 10.3, RBC 4.70, Hgb 14.6, Hct 47.5, MCV 101.0 H, MCH 31.1, MCHC 30.8 L, RDW 14.2, Plt Count 250, MPV 8.4, Neut % (Auto) 61.4, Lymph % (Auto) 31.4, [place] % (Auto) 4.7, Eos % (Auto) 1.6, Baso % (Auto) 1.0, Neut # (Auto) 6.3, Lymph # (Auto) 3.2, [place] # (Auto) 0.5, Eos # (Auto) 0.2, Baso # (Auto) 0.1, Sodium 139, Potassium 3.2 L, Chloride 104, Carbon Dioxide 25, Anion Gap 13.2, BUN 17, Creatinine 1.10, Estimated Creat Clear 85, Estimated GFR 70, Est GFR ( Amer) 85, Glucose 132 H, Calcium 9.9, Magnesium 1.8, Total Bilirubin 1.1, AST 36, ALT 31, Alkaline Phosphatase 80, Troponin I < 0.01, Total Protein 8.9 H, Albumin 5.1 H, Globulin 3.8 H, Albumin/Globulin Ratio 1.3, TSH 4.66, Free T4 1.19 I & O for Last 24 hours: Intake & Output 06/17/24 06/18/24 06/19/24 06/20/24 23:59 23:59 23:59 23:59 Weight 77.111 kg Radiology Reports for the Last 24 Hours: Chest x-ray examined showing no acute changes heart is of normal size Constitutional Constitutional: no acute distress *Routine HEENT Exam Head: Present normocephalic and atraumatic Eye: Present EOMI and PERRL ENT: Present mucous membranes moist *Routine Neck Exam Neck: Present supple and full ROM Routine Chest/Breast/Axilla Exam Comments: No tenderness found equal expansion on respiration *Routine Respiratory Exam Respiratory: Present CTA bilaterally, normal respiratory effort, able to speak in complete sentences and symmetric chest movement *Routine Cardiovascular Exam Cardiovascular: Present RRR, Normal S1, Normal S2 and bradycardia Comments: Patient on Cardizem drip rate is 55 *Routine Abdominal Exam Abdominal: Present soft and normoactive bowel sounds Comments: No problems reported by the patient *Routine Rectal Exam Rectal:: deferred *Routine Genitalia Exam Genitalia:: deferred *Routine Extremities Exam Comments: Patient is able to walk independently with no signs of weakness is able to move all extremities well Routine Back/Spine/Pelvis Exam Back/Spine: Present full ROM Comments: Patient able to walk and twist without assistance *Routine Skin Exam Skin: Present intact and warm Comments: Normal color skin no signs of bruising *Routine Neurological Exam Neurological: Present alert, oriented X3, CN II-XII intact, normal tone and no rmal speech Routine Psychiatric Exam Psychiatric: Present normal affect, normal thought process, cooperative, good insight and good judgment H&P: Result Impressions 1. History of cardiovascular disease with sudden onset of atrial fibs related to stressful situation 2. Hyperlipidemia 3. Medication use, still on aspirin but is not taking Brilinta status post cardiac cath in February of last year Imaging and Cardiology Chest x-ray: Status: image reviewed by me Additional comments: Normal exam on chest film Assessment and Plan *Assessment and plan (1) Atrial fibrillation with RVR: Status: Acute Category: Medical Code(s): I48.91 - Unspecified atrial fibrillation (2) Acute hypokalemia: Status: Acute Category: Medical Code(s): E87.6 - Hypokalemia (3) Palpitations: Status: Acute Category: Medical Code(s): R00.2 - Palpitations (4) Sinus bradycardia: Status: Acute Category: Medical Code(s): R00.1 - Bradycardia, unspecified (5) HLD (hyperlipidemia): Status: Acute Qualifiers: Hyperlipidemia type: mixed hyperlipidemia Qualified Code(s): E78.2 - Mixed hyperlipidemia Category: Medical Code(s): E78.5 - Hyperlipidemia, unspecified (6) HTN (hypertension): Status: Acute Qualifiers: Hypertension type: primary hypertension Qualified Code(s): I10 - Essential (primary) hypertension Category: Medical Code(s): I10 - Essential (primary) hypertension (7) Coronary artery disease: Status: Acute Qualifiers: Associated angina: without angina Coronary Disease-Associated Artery/Lesion type: [place] artery [place] vs. transplanted heart: [place] heart Qualified Code(s): I25.10 - Atherosclerotic heart disease of [place] coronary artery without angina pectoris Category: Medical Code(s): I25.10 - Atherosclerotic heart disease of [place] coronary artery without angina pectoris (8) Family history of heart disease: Status: Acute Category: Medical Code(s): Z82.49 - Family history of ischemic heart disease and other diseases of the circulatory system Plan Presented with tachyarrhythmia. Discussed case with ER, request admission for further management of A-fib and evaluation by cardiology. Medicine agreed to admit for further management. Problems addressed as follows: 1. Atrial fibs and cardiovascular disease: Will admit the patient to the stepdown unit as we might continue the Cardizem drip, due to his past history that he is told me that on beta-blockers and calcium channel blockers his heart rate went into the 30s. Patient is now back in sinus rhythm and will want to maintain his heart rate no less than 60 no greater than 90. This would be in a less atrial fibs was to recur, we will use DVT prophylactics of Lovenox tonight consult cardiology. Will continue to monitor the patient all night to see if abnormal arrhythmia return and monitor troponins. 2. Hyperlipidemia will continue present home medicines 3. Hypertension will continue lisinopril 4. Family history of heart disease, teaching done with the patient and the family due to this hereditary component that he needs to be following up on a regular basis with his senior policy advisor, this teaching also explained in front of the family so that they would understand the genetic component of cardiovascular disease related to this family, and the need for all to not be smoker Rounded on patient after nurse practitioner. Personally examined and interviewed patient. Agree with exam findings and care plan as documented.
--- NOTE | 2024-06-20 22:35 | PC.NURSE ---
Patient arrived to floor via wheelchair from ED at 22:34.
[2024-06-20 22:41] VITALS: PULSE 59
[2024-06-20 22:48] VITALS: BP 140/78; PULSE 58; RESP 18; TEMP 36.9; O2SAT 97; BMI 24.0
[2024-06-21] VITALS (7 sets, daily range): BP systolic 95–138; BP diastolic 33–84; PULSE 37–58; RESP 16–18; TEMP 36.6–37.1; O2SAT 96–100; BMI 24.0
[2024-06-21] MEDS: MELATONIN 5MG TABLET 10 MG PO (00:07)
[2024-06-21] MEDS: ACETAMINOPHEN 325MG TAB 650 MG PO ×2 (00:07→11:08)
[2024-06-21 00:39] LABS: Troponin I 0.02 ng/ml (0.00-0.034)
[2024-06-21 03:38] LABS: Troponin I 0.02 ng/ml (0.00-0.034)
--- NOTE | 2024-06-21 05:22 | PC.NURSE ---
since arriving to the floor the patient has no been on Cardizem. It was stopped in the ER and his heart rate has stayed below 60 since arriving to the floor. ROLLER SKATE REPAIRER is aware and was okay with that. is at the bedside. Patient has had no complaints and feels much better.
[2024-06-21 06:58] LABS: Basophils # 0.1 K/mm3 (0-0.2); Basophils % 0.8 % (0.1-2.0); Eosinophils # 0.2 K/mm3 (0.0-0.4); Eosinophils % 1.8 % (0.1-12.0); Hematocrit 43.5 % (42.0-52.0); Hemoglobin 13.6 g/dL (14.1-18.0); Lymphocytes # 3.1 K/mm3 (0.7-4.5); Lymphocytes % 31.6 % (10-50); Mean Corpuscular HGB Conc 31.2 g/dL (31.8-35.4); Mean Corpuscular Hemoglobin 31.2 pg (27.0-31.2); Mean Corpuscular Volume 99.9 fl (80-94); Mean Platelet Volume 8.8 fl (7.4-10.4); Monocytes # 0.6 K/mm3 (0.1-1.0); Monocytes % 6.1 % (1.7-9.3); Neutrophils # 5.8 K/mm3 (1.8-7.8); Neutrophils % 59.7 % (37.0-80.0); Platelet Count 232 K/mm3 (142-424); Red Blood Count 4.35 M/mm3 (4.60-6.20); Red Cell Distribution Width 14.1 % (11.5-17.5); White Blood Count 9.8 K/mm3 (4.8-10.8)
[2024-06-21 07:08] LABS: Chloride 107 mmol/L (98-107); Sodium 138 mmol/L (136-145)
[2024-06-21 07:09] LABS: Potassium 3.7 mmoL/L (3.5-5.1)
[2024-06-21 07:11] LABS: Alanine Aminotransferase 21 U/L (12-78); Albumin/Globulin Ratio 1.3 (1.1-1.8); Alkaline Phosphatase 68 U/L (38-126); Anion Gap 6.7 mEq/L (5-15); Aspartate Amino Transferase 26 U/L (17-59); Bilirubin,Total 1.2 mg/dl (0.2-1.3); Blood Urea Nitrogen 16 mg/dl (9-20); Calcium 8.9 mg/dl (8.4-10.2); Carbon Dioxide 28 mmol/L (22.0-30.0); Cholesterol 250 mg/dl (140-200); Creatinine Clearance Estimated 94 mL/min (50-200); Estimated Glomerular Filt Rate 78 ml/min (>60); GFR (African American) 95 ML/MIN (>60); Glucose 101 mg/dl (74-100); Triglycerides 92 mg/dl (30-150); VLDL Cholesterol 18 mg/dL (0-40)
[2024-06-21 07:12] LABS: Chol/HDL Ratio 7.4 (1-3.5); HDL Cholesterol 34 mg/dl (40-60); Magnesium 2.1 mg/dl (1.6-2.3)
[2024-06-21 07:23] LABS: Direct LDL Cholesterol 173.57 mg/dL (100-129)
[2024-06-21] MEDS: ASPIRIN EC 81MG TABLET 81 MG PO (09:04)
[2024-06-21] MEDS: ENOXAPARIN 80MG/0.8ML SYRINGE 80 MG SQ (09:04)
[2024-06-21] MEDS: PANTOPRAZOLE 40MG TABLET 40 MG PO (09:04)
[2024-06-21] MEDS: LISINOPRIL 20MG TABLET 20 MG PO (09:04)
[2024-06-21] MEDS: POTASSIUM CHLORIDE 20MEQ TAB 20 MEQ PO (09:04)
--- NOTE | 2024-06-21 10:23 | CA_ITS ---
APPROVED REPORT EXAM: Comprehensive 2D, Doppler, and color-flow Echocardiogram Spooling Operator: Yamileth Dong CRT Ht: 5 ft 10 in Wt: 171lbs BSA: 1.95 BP: 96/55 mmHg Indications: Atrial Fibrillation, Palpitations, CAD, Hyperlipidemia, Hypertension/HDD 2D Dimensions LA Volume 50.40 mL LA Volume Index 25.20 mL/m2 (M/F) 16-34 M-Mode Dimensions RVDd 3.10 cm (0.9-2.6) LA Diam 3.67 cm (1.9-4.0) LVDd 5.23 cm (3.5-5.7) LVDs 3.60 cm (3.5-5.7) IVSd 0.85 cm (0.6-1.1) PWd 0.78 cm (0.6-1.1) EF (Teich) 58.50% FS 31.20% EDV (Teich) 131.20 mL TAPSE 2.08 (<1.7) ESV (Teich) 54.40 mL LV Diastology E Decel Time 243 (160-240 msec) E/A Ratio 1.35 MED A' 9.40 cm/s LAT A' 12.20 cm/s Aortic Valve AO Peak GR. 10.10 mmHg Mitral Valve MV A Velocity 73.0 (40-130 cm/s) E/A Ratio 1.35 Pulmonary Valve PV Peak Velocity 83.0 (50-150 cm/s) Tricuspid Valve TR P. Velocity 222.00 cm/s RAP Estimate 10.00 mmHg RVSP 29.70 mmHg Left Ventricle The left ventricle is normal size. The left ventricular systolic function is normal. The left ventricular ejection fraction is within the normal range. There is increased LV wall thickness. There is normal LV segmental wall motion. The left ventricular diastolic function is normal. LVEF is 55%. Right Ventricle Right ventricle is mildly dilated. The right ventricular systolic function is normal. Atria The left atrium is mildly dilated. The right atrium is mildly dilated. There is no Doppler evidence of interatrial shunt. Aortic Valve The aortic valve is mildly thickened. There is no aortic valvular stenosis. No aortic regurgitation is present. Mitral Valve The mitral valve is normal in structure. No evidence of mitral valve stenosis. Trace mitral regurgitation. Tricuspid Valve Tricuspid valve is grossly normal in structure and function. Trace tricuspid regurgitation. There is insufficient TR jet to estimate RVSP. Pulmonic Valve The pulmonary valve is normal in structure. Trace pulmonic regurgitation. Great Vessels The aortic root is normal in size. The ascending aorta is normal in size. IVC is normal in size and collapses >50% with inspiration. Pericardium There is no pericardial effusion. Other Information Study Quality: Fair Conclusion Normal biventricular systolic function. Mild RV dilation. Mild biatrial dilation. No significant valvular stenosis or regurgitation. Electronically signed by : Carlita Peguero MD 06/22/2024 13:54:24
--- NOTE | 2024-06-21 10:57 | HMH.PHAINT1 ---
Pharmacy Intervention Comments: MEDICATION RECONCILIATION COMPLETED ON PATIENT USING EXTERNAL FILL HISTORY FROM PHARMACY. -AIDA VU, YARAD
--- NOTE | 2024-06-21 12:23 | P.DS_ITS ---
General Admission date:: 06/20/24 HPI HPI HPI: 43-year-old male who has stopped smoking a year ago, got into a heated argument with a neighbor.. He had a sudden onset of rapid heart rate, that would not slow. He came to the emergency room and was found to be in atrial fibs with RVR rate 1 45-1 70. With episodes of SVT. Patient had an [place] with stenting approximately a year and a half ago.. He has remained up on his aspirin taking high hypercholesterol medication, but did stop his Brilinta. Patient also quit smoking after his last heart attack. On arrival to the emergency room diltiazem was given with a diltiazem drip started. His rate declined and he converted back to sinus rhythm. Heart rate on Cardizem drip 50-55. Also noting potassium slightly low, will replace orally Do agree with the ER physician need to be brought in and monitored and be reevaluated by cardiology in the a.m. Interviewed patient and his family the send room, was noted that both sides of the family have significant heart disease with a lot of the members of the patient's family dying before age 60 with cardiovascular issues Exam Data for Last 24 hours Vital signs and Labs for Last 24 Hours: Temp Pulse Resp BP Pulse Ox O2 Del Method 97.9 F 56 L 18 130/77 100 Room Air 06/21/24 12:00 06/21/24 12:00 06/21/24 12:00 06/21/24 12:00 06/21/24 12:00 06/21/24 12:00 Laboratory Results - last 24 hr 06/20/24 20:37: WBC 10.3, RBC 4.70, Hgb 14.6, Hct 47.5, MCV 101.0 H, MCH 31.1, MCHC 30.8 L, RDW 14.2, Plt Count 250, MPV 8.4, Neut % (Auto) 61.4, Lymph % (Auto) 31.4, [place] % (Auto) 4.7, Eos % (Auto) 1.6, Baso % (Auto) 1.0, Neut # (Auto) 6.3, Lymph # (Auto) 3.2, [place] # (Auto) 0.5, Eos # (Auto) 0.2, Baso # (Auto) 0.1, Sodium 139, Potassium 3.2 L, Chloride 104, Carbon Dioxide 25, Anion Gap 13.2, BUN 17, Creatinine 1.10, Estimated Creat Clear 85, Estimated GFR 70, Est GFR ( Amer) 85, Glucose 132 H, Calcium 9.9, Magnesium 1.8, Total Bilirubin 1.1, AST 36, ALT 31, Alkaline Phosphatase 80, Troponin I < 0.01, Total Protein 8.9 H, Albumin 5.1 H, Globulin 3.8 H, Albumin/Globulin Ratio 1.3, TSH 4.66, Free T4 1.19 06/20/24 23:50: Troponin I 0.02 06/21/24 03:08: Troponin I 0.02 06/21/24 05:33: WBC 9.8, RBC 4.35 L, Hgb 13.6 L, Hct 43.5, MCV 99.9 H, MCH 31.2, MCHC 31.2 L, RDW 14.1, Plt Count 232, MPV 8.8, Neut % (Auto) 59.7, Lymph % (Auto) 31.6, [place] % (Auto) 6.1, Eos % (Auto) 1.8, Baso % (Auto) 0.8, Neut # (Auto) 5.8, Lymph # (Auto) 3.1, [place] # (Auto) 0.6, Eos # (Auto) 0.2, Baso # (Auto) 0.1, Sodium 138, Potassium 3.7, Chloride 107, Carbon Dioxide 28, Anion Gap 6.7, BUN 16, Creatinine 1.00, Estimated Creat Clear 94, Estimated GFR 78, Est GFR ( Amer) 95, Glucose 101 H D, Calcium 8.9, Magnesium 2.1 D, Total Bilirubin 1.2, AST 26 D, ALT 21 D, Alkaline Phosphatase 68, Total Protein 7.0, Albumin 4.0 D, Globulin 3.0, Albumin/Globulin Ratio 1.3, Triglycerides 92, Cholesterol 250 H, LDL Cholesterol Direct 173.57 H, VLDL Cholesterol 18, HDL Cholesterol 34 L, Cholesterol/HDL Ratio 7.4 H I & O for Last 24 hours: Intake & Output 06/18/24 06/19/24 06/20/24 06/21/24 23:59 23:59 23:59 23:59 Intake Total 340 / 340 Balance 340 / 340 Weight 77.7 kg 77.7 kg Results Data Completed and Pending Labs on day of discharge: Labs from last 24 hours 06/21/24 06/21/24 06/20/24 05:33 03:08 23:50 WBC 9.8 RBC 4.35 L Hgb 13.6 L Hct 43.5 MCV 99.9 H MCH 31.2 MCHC 31.2 L RDW 14.1 Plt Count 232 MPV 8.8 Neut % (Auto) 59.7 Lymph % (Auto) 31.6 [place] % (Auto) 6.1 Eos % (Auto) 1.8 Baso % (Auto) 0.8 Neut # (Auto) 5.8 Lymph # (Auto) 3.1 [place] # (Auto) 0.6 Eos # (Auto) 0.2 Baso # (Auto) 0.1 Sodium 138 Potassium 3.7 Chloride 107 Carbon Dioxide 28 Anion Gap 6.7 BUN 16 Creatinine 1.00 Estimated Creat Clear 94 Estimated GFR 78 Est GFR ( Amer) 95 Glucose 101 H D Calcium 8.9 Magnesium 2.1 D Total Bilirubin 1.2 AST 26 D ALT 21 D Alkaline Phosphatase 68 Troponin I 0.02 0.02 Total Protein 7.0 Albumin 4.0 D Globulin 3.0 Albumin/Globulin Ratio 1.3 Triglycerides 92 Cholesterol 250 H LDL Cholesterol Direct 173.57 H VLDL Cholesterol 18 HDL Cholesterol 34 L Cholesterol/HDL Ratio 7.4 H TSH Free T4 06/20/24 20:37 WBC 10.3 RBC 4.70 Hgb 14.6 Hct 47.5 MCV 101.0 H MCH 31.1 MCHC 30.8 L RDW 14.2 Plt Count 250 MPV 8.4 Neut % (Auto) 61.4 Lymph % (Auto) 31.4 [place] % (Auto) 4.7 Eos % (Auto) 1.6 Baso % (Auto) 1.0 Neut # (Auto) 6.3 Lymph # (Auto) 3.2 [place] # (Auto) 0.5 Eos # (Auto) 0.2 Baso # (Auto) 0.1 Sodium 139 Potassium 3.2 L Chloride 104 Carbon Dioxide 25 Anion Gap 13.2 BUN 17 Creatinine 1.10 Estimated Creat Clear 85 Estimated GFR 70 Est GFR ( Amer) 85 Glucose 132 H Calcium 9.9 Magnesium 1.8 Total Bilirubin 1.1 AST 36 ALT 31 Alkaline Phosphatase 80 Troponin I < 0.01 Total Protein 8.9 H Albumin 5.1 H Globulin 3.8 H Albumin/Globulin Ratio 1.3 Triglycerides Cholesterol LDL Cholesterol Direct VLDL Cholesterol HDL Cholesterol Cholesterol/HDL Ratio TSH 4.66 Free T4 1.19 DS: Diagnosis Discharge Diagnosis (1) Acute hypokalemia: Status: Acute Code(s): E87.6 - Hypokalemia (2) Atrial fibrillation with RVR: Status: Acute Code(s): I48.91 - Unspecified atrial fibrillation (3) Palpitations: Status: Acute Code(s): R00.2 - Palpitations (4) Sinus bradycardia: Status: Acute Code(s): R00.1 - Bradycardia, unspecified (5) HLD (hyperlipidemia): Status: Acute Code(s): E78.5 - Hyperlipidemia, unspecified Qualifiers: Hyperlipidemia type: mixed hyperlipidemia Qualified Code(s): E78.2 - Mixed hyperlipidemia (6) HTN (hypertension): Status: Acute Code(s): I10 - Essential (primary) hypertension Qualifiers: Hypertension type: primary hypertension Qualified Code(s): I10 - Essential (primary) hypertension (7) Coronary artery disease: Status: Acute Code(s): I25.10 - Atherosclerotic heart disease of [place] coronary artery without angina pectoris Qualifiers: Coronary Disease-Associated Artery/Lesion type: [place] artery [place] vs. transplanted heart: [place] heart Associated angina: without angina Qualified Code(s): I25.10 - Atherosclerotic heart disease of [place] coronary artery without angina pectoris (8) Family history of heart disease: Status: Acute Code(s): Z82.49 - Family history of ischemic heart disease and other diseases of the circulatory system Meds Home Medications and Allergies Home Medications ?Medication ?Instructions ?Recorded ?Confirmed ?Type aspirin 81 mg tablet,delayed 81 mg PO DAILY #90 tabs 03/10/23 06/20/24 Rx release nitroglycerin 0.4 mg sublingual 0.4 mg sublingual Q5MINP PRN Chest 05/12/23 06/20/24 Rx tablet (Nitrostat) Pain #20 tabs atorvastatin 80 mg tablet 80 mg PO HS #90 tabs 03/22/24 06/20/24 Rx lisinopril 20 mg tablet 20 mg PO DAILY 06/21/24 06/21/24 History New Prescriptions to Start Prescriptions: Allergies Allergy/AdvReac Type Severity Reaction Status Date / Time Penicillins Allergy Intermediate Verified 08/12/23 15:01 carvedilol [From Coreg] AdvReac bradycardia Verified 08/12/23 15:01 metoprolol AdvReac bradycardia Verified 08/12/23 15:01 Discharge Plan Disposition Patient Disposition: Home, Self-Care Condition: Good Follow up Plan Follow up with: Christianne Peng APRN [Nurse Practitioner] - Enter time for follow up Prescriptions/Medication Reconciliation: Continued aspirin 81 mg tablet,delayed release (DR/EC) 81 mg PO DAILY Qty: 90 3RF nitroglycerin [Nitrostat] 0.4 mg tablet, sublingual 0.4 mg sublingual Q5MINP PRN (Reason: Chest Pain) Qty: 20 0RF atorvastatin 80 mg tablet 80 mg PO HS Qty: 90 1RF lisinopril 20 mg tablet 20 mg PO DAILY Patient Comments: TAKE 1 TABLET BY MOUTH ONCE DAILY Problem Reconciliation Problems Reviewed?: Yes Patient Discharge Instructions ACTIVITY: Continue current activity DIET: continue same diet Patient Instructions: DI for Hypokalemia, DI for Chest Pain Print Language: Citizen Of [place] Providers Primary Care Provider: Provider,Referral Admit Provider: Khoa Benson Attending Provider: Khoa Benson
[2024-06-21] MEDS: APIXABAN 5MG TABLET 5 MG PO (13:30)
[2024-06-21] MEDS: AMIODARONE 200MG TABLET 200 MG PO (13:30)
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
--- NOTE | 2024-06-21 20:40 | ECG_ITS ---
APPROVED REPORT Exam: Resting ECG HR:169 bpm ECG Measurements Heart Rate 169 AXES QRSd 89 QRS 73 QT 262 T -16 QTc 354 Conclusion ATRIAL FIBRILLATION WITH RAPID VENTRICULAR RESPONSE MINIMAL VOLTAGE CRITERIA FOR LVH, CONSIDER NORMAL VARIANT [MEETS CRITERIA IN ONE OF: R(aVL), S(V1), R(V5), R(V5/V6)+S(V1)] NONSPECIFIC ST & T-WAVE ABNORMALITY CRITICAL TEST RESULT Electronically signed by : CIERRA TAPIA, 06/21/2024 18:00:03
--- NOTE | 2024-06-22 13:49 | CARE MANAGER ---
Attempted post-discharge follow-up phone call, no answer.
== END 2024-06-21 14:37 | disposition home or self-care (01) ==
LOC: ER 22:07 → 2ND 22:11
PROVIDERS: Nurse Practitioner Family; Admitting Provider Internal Medicine Adolescent Medicine; Emergency Provider Emergency Medicine; Visit Provider Internal Medicine Adolescent Medicine
DX: I48.91 Unspecified atrial fibrillation (principal); E87.6 Hypokalemia; R00.2 Palpitations; R00.1 Bradycardia, unspecified; E78.2 Mixed hyperlipidemia; I10 Essential (primary) hypertension; I25.10 Atherosclerotic heart disease of native coronary artery without angina pectoris; Z82.49 Family history of ischemic heart disease and other diseases of the circulatory system; I25.2 Old myocardial infarction; Z95.5 Presence of coronary angioplasty implant and graft; Z79.82 Long term (current) use of aspirin; Z79.899 Other long term (current) drug therapy; Z87.891 Personal history of nicotine dependence
CPT/HCPCS: 36415; 71045; 80053; 80061; 83735; 84439; 84443; 84484; 85025; 93005; 93270; 93306; 99291; G0378; J1650

== ENCOUNTER 2024-07-12 18:33 | Emergency (ER) | payer BC, SELFPAY ==
[2024-07-12 18:34] VITALS: BP 115/72; PULSE 61; RESP 18; TEMP 36.8; O2SAT 98; BMI 23.8
--- NOTE | 2024-07-12 18:44 | HMH.EDGENADL ---
Discharge Plan Disposition Patient Disposition: Home, Self-Care Condition: Good Prescriptions Prescriptions: New cephalexin 500 mg capsule 500 mg PO BID 7 Days Qty: 14 0RF No Action aspirin 81 mg tablet,delayed release (DR/EC) 81 mg PO DAILY Qty: 90 3RF nitroglycerin [Nitrostat] 0.4 mg tablet, sublingual 0.4 mg sublingual Q5MINP PRN (Reason: Chest Pain) Qty: 20 0RF amiodarone 200 mg tablet 200 mg PO Q24H 30 Days Qty: 30 0RF atorvastatin 80 mg tablet 80 mg PO HS Qty: 90 1RF lisinopril 20 mg tablet 20 mg PO DAILY Patient Comments: TAKE 1 TABLET BY MOUTH ONCE DAILY Eliquis 5 mg Tablet 5 mg PO BID 30 Days Qty: 60 0RF Referrals Follow up/Referrals: Med Morgan MD [Primary Care Provider] - See instructions Activity Restrictions/Add. Instructions Additional Instructions/Restrictions: Follow-up with your PCP for any worsening signs or symptoms including redness drainage swelling or pain or return to ER as needed. Clinical Impressions Clinical Impression: Fish hook injury of left upper arm Print Language Print Language: Guamanian Discharge ED Provider: Robbie Hardwick General Adult HPI <MELISSA Hopkins - Last Filed: 07/12/24 21:47> General Chief complaint: Skin/Abscess/Foreign Body Stated complaint: fish hook in Left arm Time Seen by Provider: 07/12/24 18:41 History of Present Illness HPI narrative: Patient presents for evaluation of an impaled fishhook. Patient was stuck in the back of his left upper arm by a fishing lure. He was able to cut off the prong but could not get the aj through the skin. He denies any numbness tingling loss of sensation motor or sensory. Related Data Home Medications ?Medication ?Instructions ?Recorded ?Confirmed lisinopril 20 mg tablet 20 mg PO DAILY 06/21/24 06/29/24 Previous Rx's ?Medication ?Instructions ?Recorded aspirin 81 mg tablet,delayed 81 mg PO DAILY #90 tabs 03/10/23 release nitroglycerin 0.4 mg sublingual 0.4 mg sublingual Q5MINP PRN Chest 05/12/23 tablet (Nitrostat) Pain #20 tabs apixaban 5 mg tablet (Eliquis) 5 mg PO BID 30 days #60 tabs 06/21/24 amiodarone 200 mg tablet 200 mg PO Q24H 30 days #30 tabs 06/29/24 atorvastatin 80 mg tablet 80 mg PO HS #90 tabs 06/29/24 cephalexin 500 mg capsule 500 mg PO BID 7 days #14 caps 07/12/24 Allergies Allergy/AdvReac Type Severity Reaction Status Date / Time Penicillins Allergy Intermediate Verified 06/29/24 09:20 carvedilol [From Coreg] AdvReac bradycardia Verified 06/29/24 09:20 metoprolol AdvReac bradycardia Verified 06/29/24 09:20 PFSH <MELISSA Hopkins - Last Filed: 07/12/24 21:47> [facility] Disclaimer: The information contained in this section may have been updated after the patient was seen, as this information can be updated by other users. Medical History Atrial fibrillation with RVR Sinus bradycardia Palpitations Carotid bruit Claudication HLD (hyperlipidemia) HTN (hypertension) Coronary artery disease Family history of heart disease Tobacco user ST elevation myocardial infarction (STEMI) of inferior wall Family History Other Afib Cancer Coronary artery disease Diabetes Heart attack Hyperlipidemia Hypertension Social History Smoking Status: Current every day smoker tobacco type: cigarettes packs per day: 1 alcohol intake: never substance use type: marijuana counseling provided: provider counseling current occupational status: employed and other Travel in the last 8 weeks: None Other Medical History Have you received the Flu Vaccine for this season: No Have you received the Pneumonia Vaccine: No <MELISSA Hopkins - Last Filed: 07/12/24 21:47> ROS Obtained: Yes Systems reviewed as appropriate & no additional complaints except as documented Physical Exam <MELISSA Hopkins Last Filed: 07/12/24 21:47> General General appearance: alert and in no apparent distress Neck Neck exam: Present lymphadenopathy Respiratory Respiratory exam: Present normal lung sounds bilaterally Cardiovascular Cardiovascular exam: Present regular rate Neurological Exam Neurological exam: Present alert and oriented X3 Medical Decision Making <MELISSA Hopkins - Last Filed: 07/12/24 21:47> Medical Records Screening: Per USPSTF and CDC recommendations, given the prevalence of disease in our region, it is our hospital?s policy to screen for HIV and viral Hepatitis for all patients aged 18 and over and those with ongoing risk factors. Conor Inquiry Pt receiving controlled substance: No Vital Signs: 07/12/24 18:34 07/12/24 19:31 Temperature 98.3 F 98.2 F Temperature Source Oral Oral Pulse Rate 64 Pulse Rate [Radial] 61 Respiratory Rate 18 18 Blood Pressure 112/72 Blood Pressure [Right Arm] 115/72 Blood Pressure Mean [Right Arm] 86 Blood Pressure Source Automatic Cuff Blood Pressure Source [Right Arm] Automatic Cuff Blood Pressure Position Sitting Blood Pressure Position [Right Arm] Sitting 02 Sat by Pulse Oximetry 98 Oxygen Delivery Method Room Air Room Air Orders (Tests/Meds): ED MEDICATIONS Discontinued Medications Generic Name Dose Route Start Last Admin Trade Name Freq PRN Reason Stop Dose Admin Cephalexin HCl 500 mg 07/12/24 18:44 07/12/24 19:11 Cephalexin 500mg Capsule PO 07/12/24 18:45 500 mg ONCE ONE Administration Lidocaine HCl 10 ml 07/12/24 18:44 07/12/24 19:09 Lidocaine 1% 10ml Mdv SQ 07/12/24 18:45 10 ml ONCE ONE Administration Tetanus/Reduced Diphtheria/Acell Pertussis 0.5 ml 07/12/24 18:44 07/12/24 19:10 Tet/Diphth/Pert-Adult 0.5ml Syringe IM 07/12/24 18:45 0.5 ml .ONCE ONE Administration Medical Decision Narrative: In summary patient is a 53-year-old male who presents to the emergency department for evaluation of impaled fishhook. Patient is hemodynamically stable upon arrival, afebrile. Physical exam is remarkable for a impaled fishhook and the triceps area of his left upper arm it appears to be superficial and not deep into the muscle belly. It was not a new fishhook but an old 1. Differential diagnosis includes simple subcutaneous foreign body versus complicated. Initial workup will be conducted with exam under anesthesia. Initial interventions include Tdap Keflex first dose. Initial workup reviewed by me and after local anesthesia fishhook is a superficial into the subcutaneous skin freely movable. Given this the area was prepped with Betadine and infiltrated locally with lidocaine without epi. [place] was then grasped to the point was just turning the skin and a small emely was made with 11 blade. Ja was advanced to the skin and then removed the entirety of the fishhook. Wound was left open due to contamination risks. Given this patient is appropriate for discharge with strict return precautions prescription for Keflex with first dose given here <Robbie Hardwick MD - Last Filed: 07/12/24 22:35> Vital Signs: 07/12/24 18:34 07/12/24 19:31 Temperature 98.3 F 98.2 F Temperature Source Oral Oral Pulse Rate 64 Pulse Rate [Radial] 61 Respiratory Rate 18 18 Blood Pressure 112/72 Blood Pressure [Right Arm] 115/72 Blood Pressure Mean [Right Arm] 86 Blood Pressure Source Automatic Cuff Blood Pressure Source [Right Arm] Automatic Cuff Blood Pressure Position Sitting Blood Pressure Position [Right Arm] Sitting 02 Sat by Pulse Oximetry 98 Oxygen Delivery Method Room Air Room Air Orders (Tests/Meds): ED MEDICATIONS Discontinued Medications Generic Name Dose Route Start Last Admin Trade Name Tierra PRN Reason Stop Dose Admin Cephalexin HCl 500 mg 07/12/24 18:44 07/12/24 19:11 Cephalexin 500mg Capsule PO 07/12/24 18:45 500 mg ONCE ONE Administration Lidocaine HCl 10 ml 07/12/24 18:44 07/12/24 19:09 Lidocaine 1% 10ml Mdv SQ 07/12/24 18:45 10 ml ONCE ONE Administration Tetanus/Reduced Diphtheria/Acell Pertussis 0.5 ml 07/12/24 18:44 07/12/24 19:10 Tet/Diphth/Pert-Adult 0.5ml Syringe IM 07/12/24 18:45 0.5 ml .ONCE ONE Administration Medical Decision Narrative: In summary patient is a 53-year-old male who presents to the emergency department for evaluation of impaled fishhook. Patient is hemodynamically stable upon arrival, afebrile. Physical exam is remarkable for a impaled fishhook and the triceps area of his left upper arm it appears to be superficial and not deep into the muscle belly. It was not a new fishhook but an old 1. Differential diagnosis includes simple subcutaneous foreign body versus complicated. Initial workup will be conducted with exam under anesthesia. Initial interventions include Tdap Keflex first dose. Initial workup reviewed by me and after local anesthesia fishhook is a superficial into the subcutaneous skin freely movable. Given this the area was prepped with Betadine and infiltrated locally with lidocaine without epi. [place] was then grasped to the point was just turning the skin and a small emely was made with 11 blade. Aj was advanced to the skin and then removed the entirety of the fishhook. Wound was left open due to contamination risks. Given this patient is appropriate for discharge with strict return precautions prescription for Keflex with first dose given here I was consulted by the JOSE G, and we discussed the complexity of the problems being addressed. I approved the treatment and management plan for this patient's care in the Emergency Department, thus performing a substantive portion of the medical decision making. Robbie Hardwick MD Procedures <MELISSA Hopkins - Last Filed: 07/12/24 21:47> Foreign Body Removal Site: left and upper extremity Description of foreign body: fish hook Sedation/Analgesia: other (Lidocaine subcutaneously) Technique: manual removal and incision made to facilitate removal Confirmed by:: direct visualization Complications: none Critical Care <MELISSA Hopkins - Last Filed: 07/12/24 21:47> Critical Care Time Critical Care Time: No
--- NOTE | 2024-07-12 18:45 | PC.NURSE ---
ARELY HARRIS AT BEDSIDE
[2024-07-12] MEDS: LIDOCAINE 1% 10ML MDV 10 ML SQ (19:09)
[2024-07-12] MEDS: TET/DIPHTH/PERT-ADULT 0.5ML SYRINGE 0.5 ML IM (19:10)
[2024-07-12] MEDS: cephALEXin 500MG CAPSULE 500 MG PO (19:11)
[2024-07-12 19:31] VITALS: BP 112/72; PULSE 64; RESP 18; TEMP 36.8; O2SAT 100
== END 2024-07-12 19:33 | disposition home or self-care (01) ==
PROVIDERS: Emergency Provider Emergency Medicine; PCP Family Medicine
DX: S49.92XA Unspecified injury of left shoulder and upper arm, initial encounter (principal); Z23 Encounter for immunization
CPT/HCPCS: 10120; 96372; 90471; 90715; 99283

== ENCOUNTER 2025-05-07 14:21 | Emergency (ER) | payer SELFPAY ==
--- OUTSIDE RECORDS SUMMARY | 2024-06-29 06:45 | XMS_ITS ---
Author Organization [facility] Address [address] [facility] [address] [id number] Care Team Providers Care Conservation Engineer Name Role Phone Cathy Med Unavailable [phone] Allergies Allergen (clinical drug ingredient) Drug/Non Drug Allergy documented on EMR Reaction Allergy Type Onset Date Status Penicillin Unknown Drug Allergy Active REASON FOR VISIT [facility] D/C Follow Up Encounters Encounter Location Date Provider Diagnosis [facility] [address] [place] [id number] 06/29/2024 Med Morgan Plan Of Treatment No Information Progress Notes * EMERSON BEAUCHAMPOB:1970 (54 yo M)Acc No.[id number]:06/29/2024 Progress Notes Patient: JAIME CHEEMA Provider: Lui Morgan M.D. :1970 A ge:53 Y S ex:Male Date:06/29/2024 Address:[address] [place] [address] [place], [place] Subjective: * Chief Complaints: * 1 . [facility] D/C Follow Up. * HPI: H PI: 53 year old male presents with c/o Here for follow up on: 0 06/20- [facility] hospitalization. Pt was admitted for sudden onset atrial fibs and SVT. . * ROS: D ERMATOLOGY: no R king. n o H jamila. G ASTROENTEROLOGY: no N ausea. n o V omiting. U ROLOGY: no D ifficulty urinating. n o B lood in urine. * Medical History: C oronary Artery Disease, Myocardial Infarction, s/p 1 stent mid circumflex, February 2023, treated at [facility], Hypertension, Hyperlipidemia, 35 pack year smoking [...] Electronic signature of Ghazal Morgan MD on 05/07/2025 at 02:36 PM EDT Sign off status: Pending * Provider: Lui Morgan M.D. Date: 0 06/29/2024 Generated for Susie zamora/Joan/Kailynransmitting on: 05/07/2025 02:36 PM EDT History and Physical Notes * HPI (History of Present Illness) Category Sub-Category Detail Notes Category Not es HPI Here for follow up on: 06/20-2023 [facility] hospitalization. Pt was admitted for sudden onset atrial fibs and SVT.
[2025-05-07 14:31] VITALS: BP 155/78; PULSE 71; RESP 16; TEMP 37.9; O2SAT 96; BMI 25.7
--- OUTSIDE RECORDS SUMMARY | 2025-05-07 14:36 | XMS_ITS | Clinical Summary ---
Author Organization Healthcare Address [address] [place] [address] Care Team Providers Care Reconditioner Name Role Phone Unavailable Primary Care Provider Unavailabl e Social History Tobacco Use Types Packs/Day Years Used Date Smoking Tobacco: Never Assessed Sex and Gender Information Value Date Recorded Sex Assigned at Not on file Legal Sex Male 8:52 PM EDT Gender Identity Not on file Sexual Orientation Not on file Last Filed Vital Signs Vital Sign Reading Time Taken Comments Blood Pressure 145/73 02/28/2023 4:36 PM EDT Pulse - - Temperature - - Respiratory Rate - - Oxygen Saturation - - Inhaled Oxygen Concentration - - Weight 86.2 kg (190 lb) 02/28/2023 4:36 PM EDT Height 177.8 cm (5' 10 ) 02/28/2023 4:36 PM EDT Body Mass Index 27.26 02/28/2023 4:36 PM EDT Plan of Treatment Health Maintenance Due Date Last Done Comments [facility]-Depression Screening 1970 [facility]-Infant/Child/Adol SDOH Screenings 1970 [facility]- SDOH Screenings 1988 [facility]-Adult SDOH Screenings 1988 [facility]-DTaP,Tdap,and Td Vaccine s (1 - Tdap) 1989 [facility]-Hepatitis B Vaccines (1 of 3 - 19+ 3-dose series) 1989 CT Colonography 2015 Colonoscopy 2015 FIT-DNA 2015 FIT 2015 FOBT 2015 Sigmoidoscopy 2015 [facility]-Colorectal Cancer Screening 2015 [facility]-Pneumococcal Vaccine: 50 + Years (1 of 1 - PCV) 2020 [facility]-Zoster Vaccines (1 of 2) 2020 [facility]-VLXEM-17 Vaccine (1 - 20 24-25 season) 2024 [facility]-Influenza Vaccine (#1) 2025 HPV Vaccines Aged Out No longer eligi ble based on patient's age to complete this topic [facility]-HIB Vaccines Aged Out No longer e ligible based on patient's age to complete this topic [facility]-Hepatitis A Vaccines Aged Out No longer eligible based on patient's age to complete this topic [facility]-IPV Vaccines Aged Out No longer e ligible based on patient's age to complete this topic [facility]-Rotavirus Vaccines Aged Out No lo nger eligible based on patient's age to complete this topic
--- OUTSIDE RECORDS SUMMARY | 2025-05-07 14:36 | XMS_ITS | Patient Health Record ---
Author Organization [facility] Address [address] [id number] Care Team Providers Care Robotype Operator Name Role Phone Med Morgan Unavailable [phone] Allergies Allergen (clinical drug ingredient) Drug/Non Drug Allergy documented on EMR Reaction Allergy Type Onset Date Status Penicillin Unknown Drug Allergy Active Reason For Referral No Information Medications Medication SIG (Take, Route, Frequency, Duration) Notes Start Date End Date Status Coreg 3.125 MG 1 tablet with food Orally Twice a day Unknown Brilinta 90 MG 1 tablet Orally Twic e a day Unknown Atorvastatin Calcium 80 MG 1 tablet Oral ly Once a day Unknown Aspirin 81 MG 1 tablet Orally Once a day Unknown Lisinopril 20 MG 1 tablet Orally Once a day Unknown Doxycycline Monohydrate 100 MG 1 capsule Orally Once a day Unknown Problems Problem Type SNOMED Code ICD Code Onset Dates Problem Status W/U Status Risk Notes Problem Coronary artery disease involving [place] coronary artery of [place] heart without angina pectoris (I25.10) Active confirmed Problem Hyperlipidaemia (76634756) Hyperlipidemia, unspecified hyperlipidemia type (E78.5) Active confirmed Plan Of Treatment No Information Insurance Providers Payer Name Payer Address Payer Phone Subscriber Number Group Number Insured Name Patient Relationship to Insured Coverage Start Date Coverage End Date [employer] [id number] [place] [address] [id number] JAIME ALVARADO Self - patient is the insured Medical (General) History Medical History History ICD Code Coronary Artery Disease Myocardial Infarction, s/p 1 stent mid c ircumflex, February 2023, treated at [facility] Hypertension Hyperlipidemia 35 pack year smoking history as of 2022 Surgical History Surgery Date(Month/Year) Heart Cath, Stent 02/28/2023
[2025-05-07 14:41] LABS: Coronavirus 19, PCR Not Detected (NotDetected); Influenza A, PCR Not Detected (NotDetected); Influenza B, PCR Not Detected (NotDetected)
--- NOTE | 2025-05-07 14:59 | ED_ITS ---
<Statement entered by Tess Burns MD - 05/07/25 21:05> I was consulted by the JOSE G, and we discussed the complexity of the problems being addressed. I approved the treatment and management plan for this patient's care in the emergency department, thus performing a substantive portion of the medical decision making. Tess Burns MD, RITA, FACEP Discharge Plan Disposition Patient Disposition: Home, Self-Care Prescriptions Prescriptions: New cefdinir 300 mg capsule 300 mg PO BID 10 Days Qty: 20 0RF ondansetron 4 mg tablet,disintegrating 4 mg PO BID 4 Days Qty: 8 0RF No Action aspirin 81 mg tablet,delayed release (DR/EC) 81 mg PO DAILY Qty: 90 3RF nitroglycerin [Nitrostat] 0.4 mg tablet, sublingual 0.4 mg sublingual Q5MINP PRN (Reason: Chest Pain) Qty: 20 0RF atorvastatin 80 mg tablet 80 mg PO HS Qty: 90 1RF Eliquis 5 mg tablet 5 mg PO BID 30 Days Qty: 60 0RF amiodarone 200 mg tablet 200 mg PO Q24H 30 Days Qty: 30 5RF cephalexin 500 mg capsule 500 mg PO BID 7 Days Qty: 14 0RF lisinopril 20 mg tablet 20 mg PO DAILY Patient Comments: TAKE 1 TABLET BY MOUTH ONCE DAILY Referrals Follow up/Referrals: Med Morgan MD [Primary Care Provider, Medical] - See instructions Kiel Garcia MD [Staff Physician, Urology] - See instructions Activity Restrictions/Add. Instructions Additional Instructions/Restrictions: Today you were evaluated in the emergency department and diagnosed with pyelonephritis. Please take your antibiotics as directed. Please take acetaminophen and ibuprofen [id number] as directed for fever. Increase your fluid intake. Rest. I have placed the name of a urologist on this discharge paperwork, please call make a follow-up appointment. Return to the ED for worsening of condition. Clinical Impressions Clinical Impression: Acute pyelonephritis Instructions Patient Instructions: Kidney Infection Print Language Print Language: Slovenian Discharge ED Provider: Sherman Rodriguez Adult HPI <Pearl Hancock APRN - Last Filed: 05/07/25 18:04> General Chief complaint: Nausea/Vomiting/Diarrhea Stated complaint: vomitting, fever, chills since 05/05 Time Seen by Provider: 05/07/25 14:55 Mode of Arrival: Ambulatory Source of Information: Patient Description of Symptoms (Recalled from ER Triage Doc. by RN): patient states he has had chills nausea weakness vomitting since History of Present Illness HPI narrative: patient is a 54-year-old male PMHx ACS, A-fib, HTN, HLD who presents to the ED for complaints of nausea, vomiting and diarrhea x 3 days. Patient states he is unable to keep food or fluids down. He has not had anything for symptomatic relief prior to arrival. Related Data Home Medications ?Medication ?Instructions ?Recorded ?Confirmed lisinopril 20 mg tablet 20 mg PO DAILY 06/21/2406/07 Previous Rx's ?Medication ?Instructions ?Recorded aspirin 81 mg tablet,delayed 81 mg PO DAILY #90 tabs 0 03/10/23 release nitroglycerin 0.4 mg sublingual 0.4 mg sublingual Q5MI PATCH DRILLER PRN Chest 05/12/23 tablet (Nitrostat) Pain #20 tabs atorvastatin 80 mg tablet 80 mg PO HS #90 tabs 4 cephalexin 500 mg capsule 500 mg PO BID 7 days #14 cap s 07/12/24 apixaban 5 mg tablet (Eliquis) 5 mg PO BID 30 days #60 tabs 08/20/24 amiodarone 200 mg tablet 200 mg PO Q24H 30 days #30 t abs 04/05/25 cefdinir 300 mg capsule 300 mg PO BID 10 days #20 ca ps 05/07/25 ondansetron 4 mg disintegrating 4 mg PO BID 4 days #8 tabs 05/07/25 tablet Allergies Allergy/AdvReac Type Severity Reaction Status Date / Time Penicillins Allergy Intermediate Verified 06/29/24 09:20 carvedilol (From Coreg) AdvReac bradycardia Verified 06/29/24 09:20 metoprolol AdvReac bradycardia Verified 06/29/24 09:20 PFS <Pearl Hancock APRN - Last Filed: 05/07/25 18:04> PFS Disclaimer: The information contained in this section may have been updated after the patient was seen, as this information can be updated by other users. Medical History Atrial fibrillation with RVR Sinus bradycardia Palpitations Carotid bruit Claudication HLD (hyperlipidemia) HTN (hypertension) Coronary artery disease Family history of heart disease Tobacco user ST elevation myocardial infarction (STEMI) of inferior wall Family History Other Afib Cancer Coronary artery disease Diabetes Heart attack Hyperlipidemia Hypertension Social History Smoking Status: Current every day smoker tobacco type: cigarettes packs per day: 1 alcohol intake: never substance use type: marijuana counseling provided: provider counseling current occupational status: employed and other Travel in the last 8 weeks?: None Have you lived/traveled outside US in past 30 days?: No Contact w/someone who lives/traveled outside US past 30 days?: No Exposure to someone with infectious disease in past 14 days?: No Do you have a fever (greater than 100.4 F or 38 C)?: No Have you tested positive for COVID-19?: No Exposed to someone with COVID-19 in past 14 days?: No Do you have a sore throat?: No Do you have a cough?: No Do you have any weakness?: No Do you have any diarrhea?: No Are you experiencing any unusual bleeding?: No Do you have any muscle aches/pain?: No Do you have any abdominal pain?: No Are you experiencing loss of taste or smell?: No Other Medical History Have you received the Flu Vaccine for this season: No Have you received the Pneumonia Vaccine: No <Pearl Hancock APRN - Last Filed: 05/07/25 18:04> ROS Obtained: Yes Systems reviewed as appropriate & no additional complaints except as documented Physical Exam <Pearl Hancock APRN - Last Filed: 05/07/25 18:04> General General appearance: alert Head Head exam: atraumatic Eye Eye exam: Present PERRL and EOMI ENT ENT exam: Present normal exam Neck Neck exam: Present full ROM Respiratory Respiratory exam: Present normal lung sounds bilaterally Cardiovascular Cardiovascular exam: Present regular rate Abdominal Exam Abdominal exam: Present soft Neurological Exam Neurological exam: Present alert and oriented X3 Skin Skin exam: Present warm and dry Medical Decision Making <MAURICIO Urbano Last Filed: 05/07/25 18:04> Medical Records Screening: Per USPSTF and CDC recommendations, given the prevalence of disease in our region, it is our hospital?s policy to screen for HIV and viral Hepatitis for all patients aged 18 and over and those with ongoing risk factors. Conor Inquiry Pt receiving controlled substance: No Vital Signs: 05/07/25 14:31 05/07/25 16:00 05/07/25 16:30 Temperature 100.2 F H Temperature Source Oral Pulse Rate 63 63 Pulse Rate [Right Radial] 71 Respiratory Rate 16 Blood Pressure 138/76 141/78 H Blood Pressure [Right Arm] 155/78 H Blood Pressure Mean [Right Arm] 103 Blood Pressure Source [Right Arm] Automatic Cuff Blood Pressure Position [Right Arm] Sitting 02 Sat by Pulse Oximetry 96 99 96 Oxygen Delivery Method Room Air Room Air Room Air 05/07/25 17:02 Temperature 98.9 F Temperature Source Oral Pulse Rate 68 Pulse Rate [Right Radial] Respiratory Rate 16 Blood Pressure 131/73 Blood Pressure [Right Arm] Blood Pressure Mean [Right Arm] Blood Pressure Source [Right Arm] Blood Pressure Position [Right Arm] 02 Sat by Pulse Oximetry Oxygen Delivery Method Room Air Lab Data Lab Results 05/07/25 14:32: SARS-CoV-2 (PCR) Not detected, Influenza A Untype (PCR) Not detected, Influenza Type B (PCR) Not detected 05/07/25 15:06: WBC 16.4 H, RBC 4.04 L, Hgb 13.0 L, Hct 37.8 L, MCV 93.6, MCH 32.2 H, MCHC 34.4, RDW 13.1, Plt Count 169, MPV 10.4, Neut % (Auto) 87.9 H, L ymph % (Auto) 5.9 L, Cedar % (Auto) 5.4, Eos % (Auto) 0.1, Baso % (Auto) 0.2, N eut # (Auto) 14.4 H, Lymph # (Auto) 1.0, Cedar # (Auto) 0.9, Eos # (Auto) 0.0, Baso # (Auto) 0.0, Sodium 136, Potassium 3.4 L, Chloride 101, Carbon Dioxide 27, Anion Gap 11.4, BUN 12, Creatinine 1.10, Estimated Creat Clear 91, Estimated GFR 70, Est GFR ( Amer) 84, Glucose 112 H, Calcium 9.5, Total Bilirubin 1.4 H , AST 27, ALT 22, Alkaline Phosphatase 94, Troponin I < 0.01, Total Protein 7.4, Albumin 4.3, Globulin 3.1, Albumin/Globulin Ratio 1.4, Lipase 54, HCV Ab CARMELLA w/Rflx PCR Qn Negative, HIV Ag/Ab Combo Qual Negative 05/07/25 15:37: Urine Color Yellow, Urine Appearance Clear, Urine pH 6.0, Ur Specific [place] 1.015, Urine Protein 1+ A, Urine Glucose (UA) Negative, Urine Ketones Negative, Urine Blood 2+ A, Urine Nitrate Positive A, Urine Bilirubin Negative, Urine Urobilinogen 1.0, Ur Leukocyte Esterase 2+ A, Urine WBC Tntc, Ur Squamous Epith Cells Occasional, Urine Bacteria 4+ 05/07/25 15:06 05/07/25 15:06 Orders (Tests/Meds): ED MEDICATIONS Discontinued Medications Generic Name Dose Route Start Last Admin Trade Name Freq PRN Reason Stop Dose Admin Acetaminophen 1,000 mg 05/07/25 16:16 05/07/25 16:23 Acetaminophen 1,000mg/100ml Vial IV 05/07/25 16:17 1,000 mg ONCE ONE Administration Cefdinir 600 mg 05/07/25 16:30 05/07/25 16:47 Cefdinir 300mg Capsule PO 05/17/25 16:29 600 mg DAILY [place] Administration Sodium Chloride 1,000 mls @ 999 mls/hr 05/07/25 14:59 05/07/25 15:07 Sod Chlor 0.9% 1000ml Bag IV 05/07/25 15:59 999 mls/hr .Q1H1M ONE Administration Iopamidol 75 ml 05/07/25 16:08 05/07/25 16:09 Iopamidol-370 (76%);100ml Bottle IV 05/07/25 16:09 75 ml ONCE ONE Administration Ondansetron HCl 4 mg 05/07/25 14:59 05/07/25 15:08 Ondansetron 4mg/2ml Vial IV 05/07/25 15:00 4 mg ONCE ONE Administration Sodium Chloride 10 ml 05/07/25 16:08 05/07/25 16:09 Sodium Chloride 0.9% 10ml Syr (Rad Only) IV 06/06/25 16:07 10 ml NEEDED PRN Administration Maintain IV Site ORDERS Category Date Time Status CT abdomen pelvis w con Stat Cat Scan 05/07/25 15:26 Completed CXR --portable [XR chest portable] Stat Exams 05/07/25 15:00 Completed CBC w/Auto Diff [Complete Blood Count Auto Diff] Stat Lab 05/07/25 15:06 Completed CMP [Comprehensive Metabolic Panel] Stat Lab 05/07/25 15:06 Completed HIV Combo Stat Lab 05/07/25 15:06 Completed Hepatitis C Ab Qual. W/ RFX Stat Lab 05/07/25 15:06 Completed Lipase Stat Lab 05/07/25 15:06 Completed Rapid PCR Covid and Flu A/B Stat Lab 05/07/25 14:32 Completed Trop I [Troponin I] Stat Lab 05/07/25 15:06 Completed Urinalysis and Microscopic Stat Lab 05/07/25 15:37 Completed Urine Chlam/Gono/Trich ([facility]) Stat Lab 05/07/25 15:37 Received Blood Culture Stat Micro 05/07/25 16:48 Received Urine Culture Stat Micro 05/07/25 15:37 Received Medical Decision Narrative: In summary, patient is a 54-year-old male PMHx ACS, A-fib, HTN, HLD who presents to the ED for complaints of nausea, vomiting and diarrhea x 3 days. Patient states he is unable to keep food or fluids down. He has not had anything for symptomatic relief prior to arrival. He denies any previous abdominal surgeries. Denies fever, chills, body aches, chest pain, shortness of breath, back pain, dysuria. Upon initial evaluation patient is alert, oriented and cooperative. Physical exam unremarkable, abdomen is soft. Discussed with patient we will proceed with labs, IV fluids and Zofran. Considering CT. CBC remarkable for leukocytosis, WBC 16.4, stable H&H. CMP unremarkable for any actionable abnormalities. Troponin < 0.01. Negative COVID and influenza. Urinalysis remarkable for 1+ protein, 2+ blood, positive for nitrate and leuk esterase. Chest x-ray formal read unremarkable for any acute findings. CT remarkable for pyelonephritis, I took the call from the read Dr. Ayers. For pyelonephritis, I discussed with patient that we will start him on cefdinir for 10 days, we administered his first dose in the ED. I advised him to rest, increase his fluid intake, take acetaminophen and ibuprofen [id number] as directed. We discussed return precautions to the ED and patient verbalized understanding. <Sherman Rodriguez MD - Last Filed: 05/07/25 20:05> Vital Signs: 05/07/25 14:31 05/07/25 16:00 05/07/25 16:30 Temperature 100.2 F H Temperature Source Oral Pulse Rate 63 63 Pulse Rate [Right Radial] 71 Respiratory Rate 16 Blood Pressure 138/76 141/78 H Blood Pressure [Right Arm] 155/78 H Blood Pressure Mean [Right Arm] 103 Blood Pressure Source [Right Arm] Automatic Cuff Blood Pressure Position [Right Arm] Sitting 02 Sat by Pulse Oximetry 96 99 96 Oxygen Delivery Method Room Air Room Air Room Air 05/07/25 17:02 Temperature 98.9 F Temperature Source Oral Pulse Rate 68 Pulse Rate [Right Radial] Respiratory Rate 16 Blood Pressure 131/73 Blood Pressure [Right Arm] Blood Pressure Mean [Right Arm] Blood Pressure Source [Right Arm] Blood Pressure Position [Right Arm] 02 Sat by Pulse Oximetry Oxygen Delivery Method Room Air Lab Data Lab Results 05/07/25 14:32: SARS-CoV-2 (PCR) Not detected, Influenza A Untype (PCR) Not detected, Influenza Type B (PCR) Not detected 05/07/25 15:06: WBC 16.4 H, RBC 4.04 L, Hgb 13.0 L, Hct 37.8 L, MCV 93.6, MCH 32.2 H, MCHC 34.4, RDW 13.1, Plt Count 169, MPV 10.4, Neut % (Auto) 87.9 H, L ymph % (Auto) 5.9 L, Cedar % (Auto) 5.4, Eos % (Auto) 0.1, Baso % (Auto) 0.2, N eut # (Auto) 14.4 H, Lymph # (Auto) 1.0, Cedar # (Auto) 0.9, Eos # (Auto) 0.0, Baso # (Auto) 0.0, Sodium 136, Potassium 3.4 L, Chloride 101, Carbon Dioxide 27, Anion Gap 11.4, BUN 12, Creatinine 1.10, Estimated Creat Clear 91, Estimated GFR 70, Est GFR ( Amer) 84, Glucose 112 H, Calcium 9.5, Total Bilirubin 1.4 H , AST 27, ALT 22, Alkaline Phosphatase 94, Troponin I < 0.01, Total Protein 7.4, Albumin 4.3, Globulin 3.1, Albumin/Globulin Ratio 1.4, Lipase 54, HCV Ab CARMELLA w/Rflx PCR Qn Negative, HIV Ag/Ab Combo Qual Negative 05/07/25 15:37: Urine Color Yellow, Urine Appearance Clear, Urine pH 6.0, Ur Specific [place] 1.015, Urine Protein 1+ A, Urine Glucose (UA) Negative, Urine Ketones Negative, Urine Blood 2+ A, Urine Nitrate Positive A, Urine Bilirubin Negative, Urine Urobilinogen 1.0, Ur Leukocyte Esterase 2+ A, Urine WBC Tntc, Ur Squamous Epith Cells Occasional, Urine Bacteria 4+ Orders (Tests/Meds): ED MEDICATIONS Discontinued Medications Generic Name Dose Route Start Last Admin Trade Name Freq PRN Reason Stop Dose Admin Acetaminophen 1,000 mg 05/07/25 16:16 05/07/25 16:23 Acetaminophen 1,000mg/100ml Vial IV 05/07/25 16:17 1,000 mg ONCE ONE Administration Cefdinir 600 mg 05/07/25 16:30 05/07/25 16:47 Cefdinir 300mg Capsule PO 05/17/25 16:29 600 mg DAILY [place] Administration Sodium Chloride 1,000 mls @ 999 mls/hr 05/07/25 14:59 05/07/25 15:07 Sod Chlor 0.9% 1000ml Bag IV 05/07/25 15:59 999 mls/hr .Q1H1M ONE Administration Iopamidol 75 ml 05/07/25 16:08 05/07/25 16:09 Iopamidol-370 (76%);100ml Bottle IV 05/07/25 16:09 75 ml ONCE ONE Administration Ondansetron HCl 4 mg 05/07/25 14:59 05/07/25 15:08 Ondansetron 4mg/2ml Vial IV 05/07/25 15:00 4 mg ONCE ONE Administration Sodium Chloride 10 ml 05/07/25 16:08 05/07/25 16:09 Sodium Chloride 0.9% 10ml Syr (Rad Only) IV 06/06/25 16:07 10 ml NEEDED PRN Administration Maintain IV Site ORDERS Category Date Time Status CT abdomen pelvis w con Stat Cat Scan 05/07/25 15:26 Completed CXR --portable [XR chest portable] Stat Exams 05/07/25 15:00 Completed CBC w/Auto Diff [Complete Blood Count Auto Diff] Stat Lab 05/07/25 15:06 Completed CMP [Comprehensive Metabolic Panel] Stat Lab 05/07/25 15:06 Completed HIV Combo Stat Lab 05/07/25 15:06 Completed Hepatitis C Ab Qual. W/ RFX Stat Lab 05/07/25 15:06 Completed Lipase Stat Lab 05/07/25 15:06 Completed Rapid PCR Covid and Flu A/B Stat Lab 05/07/25 14:32 Completed Trop I [Troponin I] Stat Lab 05/07/25 15:06 Completed Urinalysis and Microscopic Stat Lab 05/07/25 15:37 Completed Urine Chlam/Gono/Trich ([facility]) Stat Lab 05/07/25 15:37 Received Blood Culture Stat Micro 05/07/25 16:48 Received Urine Culture Stat Micro 05/07/25 15:37 Received Medical Decision Narrative: In summary, patient is a 54-year-old male PMHx ACS, A-fib, HTN, HLD who presents to the ED for complaints of nausea, vomiting and diarrhea x 3 days. Patient states he is unable to keep food or fluids down. He has not had anything for symptomatic relief prior to arrival. He denies any previous abdominal surgeries. Denies fever, chills, body aches, chest pain, shortness of breath, back pain, dysuria. Upon initial evaluation patient is alert, oriented and cooperative. Physical exam unremarkable, abdomen is soft. Discussed with patient we will proceed with labs, IV fluids and Zofran. Considering CT. CBC remarkable for leukocytosis, WBC 16.4, stable H&H. CMP unremarkable for any actionable abnormalities. Troponin < 0.01. Negative COVID and influenza. Urinalysis remarkable for 1+ protein, 2+ blood, positive for nitrate and leuk esterase. Chest x-ray formal read unremarkable for any acute findings. CT remarkable for pyelonephritis, I took the call from the read Dr. Ayers. For pyelonephritis, I discussed with patient that we will start him on cefdinir for 10 days, we administered his first dose in the ED. I advised him to rest, increase his fluid intake, take acetaminophen and ibuprofen [id number] as directed. We discussed return precautions to the ED and patient verbalized understanding. Critical Care <Pearl Hancock, CAKE INSPECTOR - Last Filed: 05/07/25 18:04> Critical Care Time Critical Care Time: No
--- NOTE | 2025-05-07 15:00 | XR_ITS ---
PROCEDURE INFORMATION: Exam: XR Chest Exam date and time: 05/07/2025 3:27 PM Age: 54 years old Clinical indication: Pain; Chest pressure; Prior surgery; Surgery date: 6+ months; Surgery type: Stents; Additional info: Cp, former smoker (quit 3 yrs ago but smoked for 40 yrs prior), general weakness x 3-4 days TECHNIQUE: Imaging protocol: Radiologic exam of the chest. Views: 1 view. COMPARISON: CR XR CHEST PORTABLE 06/20/2024 8:55 PM FINDINGS: Lungs: Unremarkable. No consolidation. Pleural spaces: Unremarkable. No pleural effusion. No pneumothorax. Heart/Mediastinum: Unremarkable. No cardiomegaly. Bones/joints: Unremarkable. IMPRESSION: No acute findings.
--- NOTE | 2025-05-07 15:00 | ECG_ITS ---
APPROVED REPORT Exam: Resting ECG HR:60 bpm ECG Measurements Heart Rate 60 AXES MA 146 P 56 QRSd 86 QRS 70 QT 423 T 57 QTc 424 Conclusion SINUS RHYTHM NORMAL ECG UNCONFIRMED REPORT Normal sinus rhythm. No ST elevation or depression. No T wave inversions. QTc normal at 424 Electronically signed by : KAJAL KING, 05/09/2025 14:19:27
[2025-05-07] MEDS: 0.9 % SODIUM CHLORIDE 1000ML 1,000 ML 999 ML IV (15:07)
[2025-05-07] MEDS: ONDANSETRON 4MG/2ML VIAL 4 MG IV (15:08)
[2025-05-07 15:16] LABS: Hematocrit 37.8 % (42.0-52.0); Hemoglobin 13.0 g/dL (14.1-18.0); Immature Granulocytes % 0.5 %; Mean Corpuscular HGB Conc 34.4 g/dL (31.8-35.4); Mean Corpuscular Hemoglobin 32.2 pg (27.0-31.2); Mean Corpuscular Volume 93.6 fl (80-94); Nucleated Red Blood Cells % 0 %; Platelet Count 169 K/mm3 (142-424); Red Blood Count 4.04 M/mm3 (4.60-6.20); Red Cell Distribution Width-SD 44.7 fL; White Blood Count 16.4 K/mm3 (4.8-10.8)
--- NOTE | 2025-05-07 15:26 | CT_ITS ---
PROCEDURE INFORMATION: Exam: CT Abdomen And Pelvis With Contrast Exam date and time: 05/07/2025 4:12 PM Age: 54 years old Clinical indication: Abdominal pain; Generalized; Additional info: Generalized abd pain TECHNIQUE: Imaging protocol: Computed tomography of the abdomen and pelvis with contrast. Radiation optimization: All CT scans at this facility use at least one of these dose optimization techniques: automated exposure control; mA and/or kV adjustment per patient size (includes targeted exams where dose is matched to clinical indication); or iterative reconstruction. Contrast material: ISOVUE; Contrast volume: 75 ml; Contrast route: IV; COMPARISON: CR XR CHEST PORTABLE 05/07/2025 3:27 PM FINDINGS: Liver: Normal. No mass. Gallbladder and biliary ducts: Normal. No calcified stones. No ductal dilation. Pancreas: Normal. No ductal dilation. Spleen: Normal. No splenomegaly. Adrenal glands: Normal. No mass. Kidneys and ureters: Hypoattenuation in the right kidney may represent pyelonephritis in the appropriate clinical setting (series 3, image [id number].) . There is no evidence of renal or ureteral calcifications. Stomach and bowel: A few loops of mildly dilated jejunum taper more distally. May represent ileus or early obstruction. Bowel wall thickening in the jejunum. Series 3, image 50. Findings may reflect intussusception. Findings consistent with constipation. Appendix: Normal appendix Intraperitoneal space: Unremarkable. No free air. No significant fluid collection. Vasculature: Unremarkable. No abdominal aortic aneurysm. Lymph nodes: Unremarkable. No enlarged lymph nodes. Urinary bladder: Unremarkable as visualized. Reproductive: Unremarkable as visualized. Bones/joints: Unremarkable. No acute fracture. Soft tissues: Unremarkable. IMPRESSION: Hypoattenuation in the right kidney may represent pyelonephritis in the appropriate clinical setting (series 3, image 57-59.) . THIS REPORT CONTAINS FINDINGS THAT MAY BE CRITICAL TO PATIENT CARE. The findings were verbally communicated via telephone conference with JOSE MANUEL DE LA CRUZ at 4:26 PM EDT on 05/07/2025. The findings were acknowledged and understood.
[2025-05-07 15:35] LABS: Lipase 54 U/L (23-300)
[2025-05-07 15:43] LABS: Microscopic, Urine URINE MICROSCOPIC (MICROSCOPIC)
[2025-05-07 15:48] LABS: Alanine Aminotransferase 22 U/L (12-78); Albumin Level 4.3 g/dl (3.5-5.0); Albumin/Globulin Ratio 1.4 (1.1-1.8); Alkaline Phosphatase 94 U/L (38-126); Anion Gap 11.4 mEq/L (5-15); Aspartate Amino Transferase 27 U/L (17-59); Bilirubin,Total 1.4 mg/dl (0.2-1.3); Blood Urea Nitrogen 12 mg/dl (9-20); Calcium 9.5 mg/dl (8.4-10.2); Carbon Dioxide 27 mmol/L (22.0-30.0); Chloride 101 mmol/L (98-107); Creatinine Clearance Estimated 91 mL/min (50-200); Creatinine,Serum 1.10 mg/dl (0.66-1.25); Estimated Glomerular Filt Rate 70 ml/min (>60); GFR (African American) 84 ML/MIN (>60); Globulin 3.1 g/dL (1.3-3.2); Glucose 112 mg/dl (74-100); Potassium 3.4 mmoL/L (3.5-5.1); Sodium 136 mmol/L (136-145); Total Protein,Serum 7.4 g/dl (6.3-8.2)
[2025-05-07 15:51] LABS: Bilirubin,Urine Negative (Negative); Color,Urine YELLOW (Yellow); Glucose,Urine (UA) Negative (Negative); Ketones,Urine Negative (Negative); Leukocyte Esterase,Urine 2+ (Negative); PH,Urine 6.0 (5.0-8.5); Protein,Urine 1+ (Negative); Specific Gravity, Urine 1.015 (1.005-1.030); Urobilinogen,Urine 1.0 EU/dl (0.2)
[2025-05-07 16:00] VITALS: BP 138/76; PULSE 63; O2SAT 99
[2025-05-07 16:05] LABS: Troponin I < 0.01 ng/ml (0.00-0.034)
[2025-05-07] MEDS: IOPAMIDOL-370 (76%);100ML BOTTLE 75 ML IV (16:09)
[2025-05-07] MEDS: SODIUM CHLORIDE 0.9% 10ML SYR (RAD ONLY) 10 ML IV (16:09)
[2025-05-07 16:17] LABS: Bacteria,Urine 4+ /lpf; Squamous Epithelial Cell,Urine Occasional #/hpf (0-5); WBC,Urine TNTC #/hpf (0-3)
[2025-05-07] MEDS: ACETAMINOPHEN 1,000MG/100ML VIAL 1000 MG IV (16:23)
[2025-05-07 16:25] LABS: Hepatitis C Ab Qual. W/ RFX NEGATIVE (Negative)
[2025-05-07 16:30] VITALS: BP 141/78; PULSE 63; O2SAT 96
[2025-05-07] MEDS: CEFDINIR 300MG CAPSULE 600 MG PO (16:47)
[2025-05-07 17:02] VITALS: BP 131/73; PULSE 68; RESP 16; TEMP 37.2; O2SAT 98
--- NOTE | 2025-05-09 09:26 | PC.NURSE ---
Urine culture results reviewed by Dr. Rodriguez. No new orders received at this time.
== END 2025-05-07 17:03 | disposition home or self-care (01) ==
PROVIDERS: Nurse Practitioner; Emergency Provider Student in an Organized Health Care Education/Training Program; PCP Family Medicine
DX: N10 Acute pyelonephritis (principal); I10 Essential (primary) hypertension; E78.5 Hyperlipidemia, unspecified; F17.210 Nicotine dependence, cigarettes, uncomplicated
CPT/HCPCS: 71045; 74177; 80053; 81001; 83690; 84484; 85025; 86803; 87040; 87086; 87088; 87186; 87389; 87491; 87591; 87636; 87661; 93005; 96361; 96374; 96375; 99284; J0131; J2405; J7030; Q9967

== ENCOUNTER 2025-07-03 12:21 | Emergency (ER) | payer BC, SELFPAY ==
--- OUTSIDE RECORDS SUMMARY | 2024-06-29 06:45 | XMS_ITS ---
Author Organization [facility] Address [address] [facility] [address] [id number] Care Team Providers Care Vegetable Buncher Name Role Phone Cathy Med Unavailable [phone] Allergies Allergen (clinical drug ingredient) Drug/Non Drug Allergy documented on EMR Reaction Allergy Type Onset Date Status Penicillin Unknown Drug Allergy Active REASON FOR VISIT [facility] D/C Follow Up Encounters Encounter Location Date Provider Diagnosis [facility] [address] [place] [id number] 06/29/2024 Med Morgan Plan Of Treatment No Information Progress Notes * EMERSON BEAUCHAMPOB:1970 (54 yo M)Acc No.[id number]:06/29/2024 Progress Notes Patient: JAIME CHEEMA Provider: Lui Morgan M.D. :1970 A ge:53 Y S ex:Male Date:06/29/2024 Address:[address] [place] [address] [place], [place] Subjective: * Chief Complaints: * [address] [facility] D/C Follow Up. * HPI: H PI: 53 year old male presents with c/o Here for follow up on: 0 06/20- [facility] hospitalization. Pt was admitted for sudden onset atrial fibs and SVT. . * ROS: D ERMATOLOGY: no R king. n o H jamila. G ASTROENTEROLOGY: no N ausea. n o V omiting. U ROLOGY: no D ifficulty urinating. n o B lood in urine. * Medical History: C oronary Artery Disease, Myocardial Infarction, s/p 1 stent mid circumflex, February 2023, treated at [facility], Hypertension, Hyperlipidemia, 35 pack year smoking history as of 2022. * Surgical History: H eart Cath, Stent 02/28/2023. * Hospitalization/Major Diagno stic Procedure: D enies Past Hospitalization. * Family History: F ather: diagnosed with Stroke, Heart Disease. M other: diagnosed with Hypertension, Heart Disease. * Social History: C URRENT TOBACCO USE: No . C affeine: yes, frequency: 3 x daily. Alcohol: no. * Allergies: P enicillin. Objective: * Vitals: Assessment: Plan: * Treatment: * Images: Billing Information: * Visit Code: * Procedure Codes: * Electronic signature of Ghazal Morgan MD on 07/03/2025 at 12:35 PM EDT Sign off status: Pending * Provider: Lui Morgan M.D. Date: 0 06/29/2024 Generated for Susie zamora/Joan/eTransmitting on: 0 07/03/2025 12:35 PM EDT History and Physical Notes * HPI (History of Present Illness) Category Sub-Category Detail Notes Category Not es HPI Here for follow up on: 06/20-[address] [facility] hospitalization. Pt was admitted for sudden onset atrial fibs and SVT.
[2025-07-03 12:28] VITALS: BP 147/84; PULSE 59; RESP 16; TEMP 36.8; O2SAT 97; BMI 26.4
--- OUTSIDE RECORDS SUMMARY | 2025-07-03 12:35 | XMS_ITS | Clinical Summary ---
Author Organization Healthcare Address [address] [place] [address] Care Team Providers Care Nursing Tech Name Role Phone Unavailable Primary Care Provider [...] Date Last Done Comments [facility]-Depression Screening 1970 [facility]-/Child/Adol SDOH Screenings 1970 [facility]- SDOH Screenings 1988 [...] 2020 [facility]-Zoster Vaccines (1 of 2) 2020 [id number] Vaccine (1 - 20 24-25 season) 2025 [facility]-Influenza Vaccine (#1) 2025 HPV Vaccines Aged [...]
--- OUTSIDE RECORDS SUMMARY | 2025-07-03 12:35 | XMS_ITS | Patient Health Record ---
Author Organization [facility] Address [address] [id number] Care Team Providers Care Employment Agency Manager Name Role Phone Med Morgan Unavailable [phone] Allergies Allergen (clinical drug ingredient) Drug/Non Drug [...] Problem Status W/U Status Risk Notes Problem Atherosclerotic heart disease of zuni coronary artery without angina pectoris ([id number]) Coronary artery disease involving zuni coronary artery of zuni heart without angina pectoris (I25.10) Active confirmed Problem Hyperlipidaemia (50339847) Hyperlipidemia, unspecified hyperlipidemia type (E78.5) Active confirmed Plan Of Treatment No Information Insurance Providers Payer Name Payer Address Payer Phone Subscriber Number Group Number Insured Name Patient Relationship to Insured Coverage Start Date Coverage End Date [employer] [id number] [place] [address] [id number] JAIME ALVARADO Self - patient is the insured Medical (General) History Medical History History ICD Code Coronary Artery Disease Myocardial Infarction, s/p 1 stent mid c ircumflex, February 2023, treated at [facility] Hypertension Hyperlipidemia 35 pack year smoking history as of 2022 Surgical History Surgery Date(Month/Year) Heart Cath, Stent 02/28/2023
[2025-07-03 12:49] LABS: Microscopic, Urine URINE MICROSCOPIC (MICROSCOPIC)
[2025-07-03 12:50] LABS: Bilirubin,Urine Negative (Negative); Color,Urine YELLOW (Yellow); Glucose,Urine (UA) Negative (Negative); Ketones,Urine Negative (Negative); Leukocyte Esterase,Urine 1+ (Negative); PH,Urine 6.0 (5.0-8.5); Protein,Urine Negative (Negative); Specific Gravity, Urine <= 1.005 (1.005-1.030); Urobilinogen,Urine 0.2 EU/dl (0.2)
[2025-07-03] MEDS: ONDANSETRON 4MG/2ML VIAL 4 MG IV (12:51)
[2025-07-03 12:53] VITALS: BP 125/68; PULSE 50; O2SAT 98
[2025-07-03 12:58] LABS: Hematocrit 39.6 % (42.0-52.0); Hemoglobin 13.8 g/dL (14.1-18.0); Immature Granulocytes % 0.5 %; Mean Corpuscular HGB Conc 34.8 g/dL (31.8-35.4); Mean Corpuscular Hemoglobin 32.8 pg (27.0-31.2); Mean Corpuscular Volume 94.1 fl (80-94); Nucleated Red Blood Cells % 0 %; Platelet Count 198 K/mm3 (142-424); Red Blood Count 4.21 M/mm3 (4.60-6.20); Red Cell Distribution Width-SD 45.7 fL; White Blood Count 12.0 K/mm3 (4.8-10.8)
[2025-07-03 13:00] VITALS: BP 123/76; PULSE 44; O2SAT 98
[2025-07-03 13:05] LABS: Alanine Aminotransferase 18 U/L (12-78); Albumin Level 4.7 g/dl (3.5-5.0); Albumin/Globulin Ratio 1.4 (1.1-1.8); Alkaline Phosphatase 64 U/L (38-126); Anion Gap 16.0 mEq/L (5-15); Aspartate Amino Transferase 28 U/L (17-59); Bilirubin,Total 0.9 mg/dl (0.2-1.3); Blood Urea Nitrogen 13 mg/dl (9-20); Calcium 9.4 mg/dl (8.4-10.2); Carbon Dioxide 24 mmol/L (22.0-30.0); Chloride 102 mmol/L (98-107); Creatinine Clearance Estimated 83 mL/min (50-200); Creatinine,Serum 1.20 mg/dl (0.66-1.25); Estimated Glomerular Filt Rate 63 ml/min (>60); GFR (African American) 76 ML/MIN (>60); Globulin 3.4 g/dL (1.3-3.2); Glucose 107 mg/dl (74-100); Potassium 4.0 mmoL/L (3.5-5.1); Sodium 138 mmol/L (136-145); Total Protein,Serum 8.1 g/dl (6.3-8.2)
--- NOTE | 2025-07-03 13:10 | CT_ITS ---
PROCEDURE INFORMATION: Exam: CT Abdomen And Pelvis Without Contrast Exam date and time: 07/03/2025 1:20 PM Age: 54 years old Clinical indication: Abdominal pain; Flank; Right; Additional info: Right flank pain TECHNIQUE: Imaging protocol: Computed tomography of the abdomen and pelvis without contrast. Radiation optimization: All CT scans at this facility use at least one of these dose optimization techniques: automated exposure control; mA and/or kV adjustment per patient size (includes targeted exams where dose is matched to clinical indication); or iterative reconstruction. COMPARISON: CT ABDOMEN PELVIS W CON 05/07/2025 4:12 PM FINDINGS: Lungs: Lung bases are clear as visualized. Liver: Normal. No mass. Gallbladder and biliary ducts: Normal. No calcified stones. No ductal dilation. Pancreas: Normal. No ductal dilation. Spleen: Normal. No splenomegaly. Adrenal glands: Normal. No mass. Kidneys and ureters: No renal or ureteral calculi or obstruction bilaterally. Stomach and bowel: Mild thickening of the distal rectum with mild fibrofatty appearance most suggestive of prior proctitis. No bowel obstruction or acute inflammation. Appendix is normal. Mild colonic diverticulosis. Appendix: See Stomach and bowel finding. Intraperitoneal space: Unremarkable. No free air. No significant fluid collection. Vasculature: Unremarkable. No abdominal aortic aneurysm. Lymph nodes: Unremarkable. No enlarged lymph nodes. Urinary bladder: Moderately distended bladder. Reproductive: Prostatomegaly. Bones/joints: Moderate to severe degenerative change at L5-S1. Mild degenerative change in the remainder lumbar spine. Soft tissues: Unremarkable. IMPRESSION: 1. Mild thickening of the distal rectum with mild fibrofatty appearance most suggestive of prior proctitis. No bowel obstruction or acute inflammation. Appendix is normal. 2. Mild colonic diverticulosis. 3. Moderately distended bladder.
--- NOTE | 2025-07-03 13:17 | PC.NURSE ---
patient to CT with radiology staff
--- NOTE | 2025-07-03 13:19 | ED_ITS ---
Discharge Plan Disposition Patient Disposition: Home, Self-Care Prescriptions Prescriptions: New lidocaine 4 % adhesive patch,medicated 1 patch topical DAILY Qty: 5 0RF Rx Instructions: may leave on for up to 12 hrs cefdinir 300 mg capsule 300 mg PO BID 10 Days Qty: 20 0RF cyclobenzaprine 5 mg tablet 5 mg PO TID PRN (Reason: muscle spasm) 5 Days Qty: 15 0RF No Action aspirin 81 mg tablet,delayed release (DR/EC) 81 mg PO DAILY Qty: 90 3RF nitroglycerin [Nitrostat] 0.4 mg tablet, sublingual 0.4 mg sublingual Q5MINP PRN (Reason: Chest Pain) Qty: 20 0RF atorvastatin 80 mg tablet 80 mg PO HS Qty: 90 1RF Eliquis 5 mg tablet 5 mg PO BID 30 Days Qty: 60 0RF amiodarone 200 mg tablet 200 mg PO Q24H 30 Days Qty: 30 5RF cephalexin 500 mg capsule 500 mg PO BID 7 Days Qty: 14 0RF cefdinir 300 mg capsule 300 mg PO BID 10 Days Qty: 20 0RF ondansetron 4 mg tablet,disintegrating 4 mg PO BID 4 Days Qty: 8 0RF lisinopril 20 mg tablet 20 mg PO DAILY Patient Comments: TAKE 1 TABLET BY MOUTH ONCE DAILY Referrals Follow up/Referrals: Med Morgan MD [Primary Care Provider, Medical] - See instructions Kiel Garcia MD [Staff Physician, Urology] - See instructions Activity Restrictions/Add. Instructions Additional Instructions/Restrictions: Working diagnosis right now is pyelonephritis or kidney infection versus musculoskeletal strain on the right side of your flank. Given the fact this may be your second presentation of pyelonephritis you have been given a referral to Dr. Garcia her urologist. Please return with any significant worsening of her symptoms such as high fevers unable to be broken by Tylenol. Clinical Impressions Clinical Impression: Pyelonephritis, Strain of flank Instructions Patient Instructions: DI for Low Back Pain Print Language Print Language: [place] Discharge ED Provider: Tess Burns General Adult HPI General Chief complaint: Back Pain/Injury Stated complaint: back pain, vomitting Time Seen by Provider: 07/03/25 12:35 Mode of Arrival: Ambulatory Source of Information: Patient Description of Symptoms (Recalled from ER Triage Doc. by RN): maggie presents to ED with right sided flank pain. Maggie stated it started yesterday but has worsened today. he surrently rates his pain 5/10 and also stated he was seen in the ED in may and diagnosed with pyelonephritis. History of Present Illness HPI narrative: Patient is a 54-year-old male present today with right flank pain. States is very similar to a diagnosis of pyelonephritis that he had about 2 months ago. He promptly improved after initiation of antibiotics last time. No history of any kidney stones no intermittent pain this time states is worse with position and has having hard time getting comfortable. Denies any hematuria frequency urgency fevers chills etc. just pain on the right side of his abdomen. Related Data Home Medications ?Medication ?Instructions ?Recorded ?Confirmed lisinopril 20 mg tablet 20 mg PO DAILY 06/21/2406/07 Previous Rx's ?Medication ?Instructions ?Recorded aspirin 81 mg tablet,delayed 81 mg PO DAILY #90 tabs 0 03/10/23 release nitroglycerin 0.4 mg sublingual 0.4 mg sublingual Q5MI ED TEACHER PRN Chest 05/12/23 tablet (Nitrostat) Pain #20 tabs atorvastatin 80 mg tablet 80 mg PO HS #90 tabs 4 cephalexin 500 mg capsule 500 mg PO BID 7 days #14 cap s 07/12/24 apixaban 5 mg tablet (Eliquis) 5 mg PO BID 30 days #60 tabs 08/20/24 amiodarone 200 mg tablet 200 mg PO Q24H 30 days #30 t abs 04/05/25 cefdinir 300 mg capsule 300 mg PO BID 10 days #20 ca ps 05/07/25 ondansetron 4 mg disintegrating 4 mg PO BID 4 days #8 tabs 05/07/25 tablet cefdinir 300 mg capsule 300 mg PO BID 10 days #20 ca ps 07/03/25 cyclobenzaprine 5 mg tablet 5 mg PO TID PRN muscle spa sm 5 07/03/25 days #15 tabs lidocaine 4 % topical patch 1 patch topical DAILY #5 e a 07/03/25 Allergies Allergy/AdvReac Type Severity Reaction Status Date / Time Penicillins Allergy Intermediate Verified 06/29/24 09:20 carvedilol (From Coreg) AdvReac bradycardia Verified 06/29/24 09:20 metoprolol AdvReac bradycardia Verified 06/29/24 09:20 [facility] Disclaimer: The information contained in this section may have been updated after the patient was seen, as this information can be updated by other users. Medical History Atrial fibrillation with RVR Sinus bradycardia Palpitations Carotid bruit Claudication HLD (hyperlipidemia) HTN (hypertension) Coronary artery disease Family history of heart disease Tobacco user ST elevation myocardial infarction (STEMI) of inferior wall Family History Other Afib Cancer Coronary artery disease Diabetes Heart attack Hyperlipidemia Hypertension Social History Smoking Status: Current some day smoker tobacco type: cigarettes packs per day: 1 alcohol intake: never substance use type: marijuana counseling provided: provider counseling current occupational status: employed and other Travel in the last 8 weeks?: None Have you lived/traveled outside [place] in past 30 days?: No Contact w/someone who lives/traveled outside [place] past 30 days?: No Exposure to someone with infectious disease in past 14 days?: No Do you have a fever (greater than 100.4 F or 38 C)?: No Have you tested positive for COVID-19?: No Exposed to someone with COVID-19 in past 14 days?: No Do you have a sore throat?: No Do you have a cough?: No Do you have any weakness?: No Do you have any diarrhea?: No Are you experiencing any unusual bleeding?: No Do you have any muscle aches/pain?: No Do you have any abdominal pain?: No Are you experiencing loss of taste or smell?: No Other Medical History Have you received the Flu Vaccine for this season: No Have you received the Pneumonia Vaccine: No ROS Obtained: Yes All systems reviewed & no additional complaints except as documented Physical Exam General General appearance: alert and in no apparent distress Respiratory Respiratory exam: Present normal lung sounds bilaterally; Absent respiratory distress Cardiovascular Cardiovascular exam: Present regular rate; Absent normal rhythm Abdominal Exam Abdominal exam: Present soft and tenderness (Patient has tenderness in his lower abdomen no significant tenderness along the right side or flank or CVA region); Absent distention Neurological Exam Neurological exam: Present alert and oriented X3 Medical Decision Making Medical Records Screening: Per USPSTF and CDC recommendations, given the prevalence of disease in our region, it is our hospital?s policy to screen for HIV and viral Hepatitis for all patients aged 18 and over and those with ongoing risk factors. Conor Inquiry Pt receiving controlled substance: No Vital Signs: 07/03/25 12:28 07/03/25 12:53 07/03/25 13:00 Temperature 98.2 F Temperature Source Oral Pulse Rate 50 L 44 L Pulse Rate [Right Radial] 59 L Respiratory Rate 16 Blood Pressure 125/68 123/76 Blood Pressure [Right Arm] 147/84 H Blood Pressure Mean [Right Arm] 105 Blood Pressure Source [Right Arm] Automatic Cuff Blood Pressure Position [Right Arm] Sitting 02 Sat by Pulse Oximetry 97 98 98 Oxygen Delivery Method Room Air Room Air Room Air 07/03/25 13:31 07/03/25 13:59 Temperature Temperature Source Pulse Rate 50 L 46 L Pulse Rate [Right Radial] Respiratory Rate Blood Pressure 136/65 129/73 Blood Pressure [Right Arm] Blood Pressure Mean [Right Arm] Blood Pressure Source [Right Arm] Blood Pressure Position [Right Arm] 02 Sat by Pulse Oximetry 97 99 Oxygen Delivery Method Room Air Room Air Lab Data Lab results reviewed: Yes I reviewed the patient's lab results. Lab Results 07/03/25 12:29: WBC 12.0 H, RBC 4.21 L, Hgb 13.8 L, Hct 39.6 L, MCV 94.1 H, MCH 32.8 H, MCHC 34.8, RDW 13.3, Plt Count 198, MPV 10.8 H, Neut % (Auto) 76.9, Lymph % (Auto) 16.1, [place] % (Auto) 5.1, Eos % (Auto) 0.9, Baso % (Auto) 0.5, N eut # (Auto) 9.2 H, Lymph # (Auto) 1.9, [place] # (Auto) 0.6, Eos # (Auto) 0.1, Baso # (Auto) 0.1, Sodium 138, Potassium 4.0, Chloride 102, Carbon Dioxide 24, A [place] 16.0 H, BUN 13, Creatinine 1.20, Estimated Creat Clear 83, Estimated GFR 63, Est GFR ( Amer) 76, Glucose 107 H, Calcium 9.4, Total Bilirubin 0.9, AST 28, ALT 18, Alkaline Phosphatase 64, Total Protein 8.1, Albumin 4.7, G lobulin 3.4 H, Albumin/Globulin Ratio 1.4 07/03/25 12:40: Urine Color Yellow, Urine Appearance Clear, Urine pH 6.0, Ur Specific [place] <= 1.005, Urine Protein Negative, Urine Glucose (UA) Negative, Urine Ketones Negative, Urine Blood Negative, Urine Nitrate Negative, Urine Bilirubin Negative, Urine Urobilinogen 0.2, Ur Leukocyte Esterase 1+ A, Urine RBC None, Urine WBC 3-5, Ur Squamous Epith Cells None, Urine Bacteria None 07/03/25 12:29 07/03/25 12:29 Orders (Tests/Meds): ED MEDICATIONS Discontinued Medications Generic Name Dose Route Start Last Admin Trade Name Freq PRN Reason Stop Dose Admin Lactated Ringer's 1,000 mls @ 999 mls/hr 07/03/25 13:15 07/03/25 13:23 Lactated Ringer's 1000 Ml Bag IV 07/03/25 14:15 999 mls/hr .[id number] [place] Administration Ketorolac Tromethamine 15 mg 07/03/25 13:11 07/03/25 13:22 Ketorolac 30mg/Ml Vial IV 07/03/25 13:12 15 mg ONCE ONE Administration Ondansetron HCl 4 mg 07/03/25 12:49 07/03/25 12:51 Ondansetron 4mg/2ml Vial IV 07/03/25 12:50 4 mg ONCE ONE Administration ORDERS Category Date Time Status CT abdomen pelvis wo con Stat Cat Scan 07/03/25 13:10 Completed CMP [Comprehensive Metabolic Panel] Stat Lab 07/03/25 12:29 Completed Complete Blood Count Auto Diff Stat Lab 07/03/25 12:29 Completed Urinalysis and Microscopic Stat Lab 07/03/25 12:40 Completed Urine Culture Stat Micro 07/03/25 12:40 Received Medical Decision Narrative: Patient with above history and physical does have some lower abdominal tenderness differential includes any intra-abdominal pathology such as appendicitis kidney stone etc. patient does have some subjective complaints of pain along the right flank and did have a recent diagnosis of pyelonephritis but on my exam he really has no CVA tenderness and describes the pain as being lower in his back more along the lumbosacral regions of musculoskeletal pain is certainly in the differential as well. Labs CT scan pain medicine nausea medicine are being administered and will reassess. Reassessment 2:[address] scan of the patient's abdomen pelvis performed which I personally interpreted which shows no evidence of any intra-abdominal pathology that would explain the patient's flank pain specifically stranding around the right kidney is improved from last time as well as thickening around the bladder which is still mildly distended. No other alternative explanation of patient's symptoms. Patient did have 1+ leukocyte esterase in his urine could be congressional representative of a kidney infection however again patient does not have any CVA tenderness. Given the fact the patient states this feels very similar to his recent diagnosis of pyelonephritis this will be my working diagnosis however the majority of his symptoms seem to be musculoskeletal in nature worsening with movement or touch in the lower region of the lumbar sacral region. Therefore we will have him take Tylenol cyclobenzaprine and lidocaine patches. Nonetheless we will give him a urology follow-up given that this may be his second presentation of pyelonephritis in the most recent weeks. Patient discharged in stable condition. Critical Care Critical Care Time Critical Care Time: No
[2025-07-03] MEDS: KETOROLAC 30MG/ML VIAL 15 MG IV (13:22)
--- NOTE | 2025-07-03 13:22 | PC.NURSE ---
pt back for CT at this time via wheelchair via technical document writer
[2025-07-03] MEDS: LACTATED RINGERS 1000ML 1,000 ML 999 ML IV (13:23)
[2025-07-03 13:31] VITALS: BP 136/65; PULSE 50; O2SAT 97
[2025-07-03 13:59] VITALS: BP 129/73; PULSE 46; O2SAT 99
[2025-07-03 14:49] VITALS: BP 104/83; PULSE 50; RESP 16; TEMP 36.8; O2SAT 100
== END 2025-07-03 14:49 | disposition home or self-care (01) ==
PROVIDERS: Emergency Provider Student in an Organized Health Care Education/Training Program; PCP Family Medicine
DX: N10 Acute pyelonephritis (principal); R10.31 Right lower quadrant pain; M54.6 Pain in thoracic spine; R11.2 Nausea with vomiting, unspecified
CPT/HCPCS: 74176; 80053; 81001; 85025; 87086; 96361; 96374; 96375; 99285; J1885; J2405; J7120